=== PATIENT | male | born 1960 | race Caucasian/White ===

== ENCOUNTER → 2018-06-13 11:39 | Outpatient (CLI) | payer OTHER, SELFPAY ==
--- NOTE | 2018-06-13 11:44 | DI.RAD.S_ITS ---
PROCEDURE: XR SACRUM COCCYX MIN 2V INDICATIONS: neuropathy TECHNIQUE: 3 views of the sacrum and coccyx acquired. COMPARISON: None. FINDINGS: Bones: No fractures or dislocations. No suspicious bony lesions. Lower lumbar degenerative disc disease. Trace retrolisthesis of L3 on L4 and grade one anterolisthesis of L4 and L5. Diffuse facet arthropathy. Grossly unremarkable. Alignment of the sacroiliac joints. Degenerative sclerosis and spurring of the pubic symphysis. Mild bilateral hip degeneration. Soft tissues: Visualized bowel gas pattern is normal. No suspicious soft tissue densities. IMPRESSION: Lower lumbar degenerative disease, multilevel spondylolisthesis, and facet arthropathy. Unremarkable appearance of the sacrum. Dictated by: Adrian Parada M.D. on 06/13/2018 at 14:04 Approved by: Adrian Parada M.D. on 06/13/2018 at 14:06
--- NOTE | 2018-06-13 11:44 | DI.RAD.S_ITS ---
PROCEDURE: XR CERVICAL SPINE 2V OR 3V INDICATIONS: neuropathy TECHNIQUE: 3 view(s) of the cervical spine were acquired. COMPARISON: None. FINDINGS: Bones: No fractures or dislocations to the C7 level. The lateral masses of C1 appear intact on the odontoid view. No suspicious bony lesions. Diffuse facet arthropathy. Diffuse endplate spurring and sclerosis. Mild narrowing of the cervical disc spaces throughout. Mild levocurvature Soft tissues: No prevertebral soft tissue swelling. IMPRESSION: Mild levocurvature and diffuse mild cervical disc degeneration and facet arthropathy. Dictated by: Adrian Parada M.D. on 06/13/2018 at 13:16 Approved by: Adrian Parada M.D. on 06/13/2018 at 13:23
--- NOTE | 2018-06-13 11:44 | DI.RAD.S_ITS ---
PROCEDURE: XR LUMBAR SPINE 2-3V INDICATIONS: neuropathy TECHNIQUE: 6 views of the lumbar spine were acquired. COMPARISON: None. FINDINGS: Bones: No fracture or focal osseous destruction although advanced degenerative changes limits diagnostic study sensitivity. Diffuse endplate spurring and sclerosis. Extra scoliosis of the lumbar spine centered at L3. Multilevel facet arthropathy. Grade 1 retrolisthesis of L1 on L2 and L2 on L3, as well as L3 on L4. One anterolisthesis of L4 on L5. Moderate narrowing of the lumbar disc spaces throughout the lumbar spine. There is also lower thoracic degenerative disc disease Soft tissues: Overlying bowel gas pattern is normal. No suspicious soft tissue calcifications. IMPRESSION: Diffuse moderate to severe lumbar disc degeneration, and multilevel facet arthropathy. Additionally, lower thoracic degenerative disc disease is present. Dextroscoliosis centered at L3. Multilevel spondylolistheses as above Dictated by: Adrian Parada M.D. on 06/13/2018 at 12:42 Approved by: Adrian Parada M.D. on 06/13/2018 at 12:46
--- NOTE | 2018-06-13 11:44 | DI.RAD.S_ITS ---
PROCEDURE: XR THORACIC SPINE 3V INDICATIONS: neuropathy TECHNIQUE: 3 views of the thoracic spine were acquired. COMPARISON: None. FINDINGS: Bones: No fractures or dislocations. No suspicious bony lesions. Levocurvature is noted. There is diffuse discogenic change and endplate spurring/sclerosis. There is no definite narrowing of the thoracic spine disc spaces. Cervical disc degeneration is present. Soft tissues: No paravertebral stripe thickening. IMPRESSION: Diffuse thoracic spine discogenic changes and levocurvature. Dictated by: Adrian Parada M.D. on 06/13/2018 at 13:23 Approved by: Adrian Parada M.D. on 06/13/2018 at 13:35
== END ==
PROVIDERS: Visit Provider Physician Assistant
DX: G62.9 Polyneuropathy, unspecified (principal); M51.36 Other intervertebral disc degeneration, lumbar region; M51.34 Other intervertebral disc degeneration, thoracic region; M41.86 Other forms of scoliosis, lumbar region; M47.816 Spondylosis without myelopathy or radiculopathy, lumbar region; M43.16 Spondylolisthesis, lumbar region; M41.82 Other forms of scoliosis, cervical region; M50.30 Other cervical disc degeneration, unspecified cervical region; M47.812 Spondylosis without myelopathy or radiculopathy, cervical region
CPT/HCPCS: 72040; 72072; 72100; 72220

== ENCOUNTER → 2018-06-16 08:17 | Outpatient (CLI) | payer OTHER, SELFPAY ==
[2018-06-16 09:53] LABS: Add Manual Diff / Slide Review NO; Basophils Percent Auto 0.6 % (0-2); Eosinophils Percent Auto 3.5 % (2-4); Hemoglobin 17.1 g/dL (13.5-17.5); Lymphocytes Percent Auto 25.4 % (25-40); Mean Corpuscular HGB Conc 34.2 % (30-36); Mean Corpuscular Hemoglobin 29.1 PG (26-34); Mean Corpuscular Volume 85.2 fL (80-100); Monocytes Percent Auto 10.9 % (3-14); Neutrophils Absolute Auto 3700 /uL (3000-5900); Neutrophils Percent Auto 59.6 % (50-75); Platelet Count 303 X10^3/uL (150-400); Red Blood Cell Count 5.87 X10^6/uL (4.5-5.9); Red Cell Distribution Width 14.7 % (11.6-14.8); White Blood Cell Count 6.2 X10^3/uL (4.5-11.0)
[2018-06-16 09:58] LABS: HEMOLYSIS 16 (0-50)
[2018-06-16 10:15] LABS: Alanine Aminotransferase 86 IU/L (21-72); Albumin 4.7 g/dL (3.5-5.0); Albumin Globulin Ratio 1.8 (1.0-2.8); Alkaline Phosphatase 74 U/L (38-126); Aspartate Aminotransferase 54 IU/L (17-59); BUN Creatinine Ratio 31.4 (6-22); Bilirubin Total 0.7 mg/dL (0.2-1.3); Blood Urea Nitrogen 22 mg/dL (9-20); Calcium 9.8 mg/dL (8.4-10.2); Carbon Dioxide 30 mmol/L (22-32); Chloride 100 mmol/L (98-107); Cholesterol 142 mg/dL (140-199); Estimated Glomerular Filt Rate > 60.0 mL/min (>60); Globulin 2.6 g/dL (1.7-4.1); Glucose 133 mg/dL (70-100); HDL Cholesterol 58 mg/dL (40-60); Hemoglobin A1C% w Est Avg Glu 6.3 % (4.0-6.0); LDL Cholesterol Calculated 65 mg/dL (<100); Potassium 4.7 mmol/L (3.4-5.1); Sodium 141 mmol/L (137-145); Total Protein 7.3 g/dL (6.3-8.2); Triglycerides 96 mg/dL (35-150)
[2018-06-16 10:31] LABS: Thyroid Stimulating Hormone 2.74 uIU/mL (0.47-4.68)
[2018-06-16 11:53] LABS: Vitamin B12 697 pg/mL (239-931)
== END ==
PROVIDERS: Visit Provider Physician Assistant
DX: G62.9 Polyneuropathy, unspecified (principal)
CPT/HCPCS: 36415; 80053; 80061; 82607; 83036; 84443; 85025

== ENCOUNTER → 2018-07-20 15:30 | Outpatient (CLI) | payer OTHER, SELFPAY ==
--- NOTE | 2018-07-20 | DI.MRI.S_ITS ---
PROCEDURE: MR CERVICAL SPINE WO CON INDICATIONS: NECK PAIN. LEFT ARM TINGLING TECHNIQUE: Noncontrast sagittal T1 spin echo and T2 fast spin echo, sagittal STIR, foraminal oblique sagittal T2 fast spin echo, and axial gradient echo or T2 fast spin echo through the cervical spine. COMPARISON: [facility], CR, XR CERVICAL SPINE 2V OR 3V, 06/13/2018, 11:47. FINDINGS: Image quality: Excellent. Alignment and Curvature: There is loss of normal cervical lordosis. Bone Marrow: Marrow demonstrates normal overall signal. Spinal Cord: Visualized spinal cord has normal size and signal. No cerebellar tonsillar herniation. Paraspinous Soft Tissues: No paravertebral masses. Prevertebral soft tissues are normal in thickness. C2-C3: Congenital canal stenosis. Moderate disc desiccation. Mild disc height loss. Mild diffuse disc bulge. Moderate facet and uncovertebral hypertrophy bilaterally. Mild canal stenosis. Severe left and moderate right foraminal stenosis. Left intraforaminal C3 nerve root flattening. C3-C4: Moderate disc desiccation. Mild disc height loss. Mild diffuse disc bulge. Moderate facet and uncovertebral hypertrophy bilaterally. Congenital canal stenosis. Moderate canal stenosis. Severe foraminal stenosis bilaterally with bilateral intraforaminal C4 nerve root flattening. C4-C5: Moderate disc height loss and desiccation. Mild diffuse disc bulge. Congenital canal stenosis. Moderate facet and uncovertebral hypertrophy bilaterally. Severe canal stenosis. Mild cord flattening. Moderate right and severe left foraminal stenosis. Left intraforaminal C5 nerve root flattening. C5-C6: Congenital canal stenosis. Moderate disc height loss and desiccation. Mild diffuse disc bulge/osteophyte. Moderate right greater than left facet and uncovertebral hypertrophy. Moderate to severe canal stenosis. Minimal anterior cord flattening. Moderate foraminal stenosis bilaterally. C6-C7: Moderate disc height loss and desiccation. Moderate diffuse disc bulge. Congenital canal stenosis. Mild facet and uncovertebral hypertrophy bilaterally. Severe canal stenosis. Mild cord flattening. Moderate foraminal stenosis bilaterally. C7-T1: Moderate disc height loss and desiccation. Moderate diffuse disc bulge. Congenital canal stenosis. Overall moderate canal stenosis. Mild anterior cord flattening. No foraminal stenosis. IMPRESSION: 1. Diffuse congenital canal stenosis, with superimposed disc and facet disease, as well as uncovertebral hypertrophy. 2. Multilevel canal stenoses, worst at C4-C5, C5-C6, and C6-C7, where there is cord flattening present. 3. Multilevel foraminal stenoses, worst on the left at C2-C3, bilaterally at C3-C4, and on the left at C4-C5, where there is intraforaminal neural flattening as described above. Recommend correlation with clinical symptoms to ascertain relevance of these findings. Dictated by: Tuan Lockhart M.D. on 07/20/2018 at 16:47 Approved by: Tuan Lockhart M.D. on 07/20/2018 at 16:53
--- NOTE | 2018-07-20 | DI.MRI.S_ITS ---
PROCEDURE: MR LUMBAR SPINE WO CON INDICATIONS: LUMBAR SPINE PAIN, CERVICAL SPINE PAIN TECHNIQUE: Noncontrast sagittal T1 spin echo and T2 fast echo, sagittal STIR, axial T1 and T2 fast spin echo through the lumbar spine. In cases with scoliosis, additional coronal T2 fast spin echo may be performed. COMPARISON: None. FINDINGS: Image quality: Excellent. Alignment and Curvature: There has been minimal dextroconvex curvature of the lumbar spine with apex at L3. There is grade 1 anterolisthesis of L4 on L5 measuring 6 mm. There is trace retrolisthesis of L1 on L2, L2 on L3, L3 on L4. Bone Marrow: Marrow is of normal overall signal. Reactive endplate changes are present at L1-L2, L4-5. No acute vertebral body compression fractures. Spinal Cord: Conus medullaris terminates at the L1 level. Visualized cord demonstrates normal signal and size. Paraspinous Soft Tissues: No paravertebral masses. Right renal hyperintensity is present most suggestive of cyst. Discs: Moderate to severe desiccation is present throughout the lumbar spine. L1-L2: Mild disc bulge including a left lateral disc osteophyte complex. There is minimal canal narrowing. Minimal bilateral foraminal narrowing. L2-L3: Mild disc bulge with moderate to severe spinal stenosis. There is moderate to severe bilateral foraminal narrowing with facet and ligamentum flavum hypertrophy. Epidural lipomatosis is present. L3-L4: Mild disc bulge with moderate to severe spinal stenosis. Moderate bilateral foraminal narrowing with facet and ligamentum flavum hypertrophy. Epidural lipomatosis is present. L4-L5: Mild disc bulge with severe spinal stenosis and canal flattening. There is severe bilateral foraminal narrowing much more prominent on the right with significant nerve root flattening on the right and minimal flattening on the left. Facet and ligamentum flavum hypertrophy are present. L5-S1: Mild disc bulge with minimal canal narrowing. Moderate bilateral foraminal narrowing, right greater than left with facet and ligamentum flavum hypertrophy. IMPRESSION: 1. Grade 1 anterolisthesis of L4 on L5 with severe spinal stenosis and bilateral foraminal narrowing as well as nerve root flattening at this level. 2. Moderate to severe spinal stenosis is present L3-4 secondary to disc bulge, facet arthropathy as well as epidural lipomatosis. 3. Multilevel foraminal narrowing predominantly secondary to facet arthropathy as well as anterolisthesis at L4-5. Dictated by: Lesa Valentino M.D. on 07/23/2018 at 8:54 Approved by: Lesa Valentino M.D. on 07/23/2018 at 10:14
== END ==
PROVIDERS: Visit Provider Orthopaedic Surgery Orthopaedic Surgery of the Spine
DX: M54.2 Cervicalgia (principal); R20.2 Paresthesia of skin; M48.02 Spinal stenosis, cervical region; M48.061 Spinal stenosis, lumbar region without neurogenic claudication; M47.816 Spondylosis without myelopathy or radiculopathy, lumbar region; M51.26 Other intervertebral disc displacement, lumbar region; M43.16 Spondylolisthesis, lumbar region; E88.2 Lipomatosis, not elsewhere classified
CPT/HCPCS: 72141; 72148

== ENCOUNTER → 2018-08-15 12:57 | Outpatient (CLI) | payer OTHER, SELFPAY ==
[2018-08-15 13:52] LABS: Add Manual Diff / Slide Review NO; Basophils Absolute Auto 0 /uL (0-100); Basophils Percent Auto 0.5 % (0-2); Eosinophils Absolute Auto 200 /uL (0-450); Eosinophils Percent Auto 1.8 % (2-4); Hematocrit 49.4 % (41-53); Hemoglobin 16.7 g/dL (13.5-17.5); Lymphocytes Absolute Auto 2200 /uL (1100-4500); Lymphocytes Percent Auto 23.4 % (25-40); Mean Corpuscular HGB Conc 33.7 % (30-36); Mean Corpuscular Hemoglobin 28.7 PG (26-34); Monocytes Absolute Auto 900 /uL (0-900); Monocytes Percent Auto 10.1 % (3-14); Neutrophils Absolute Auto 5900 /uL (1500-7000); Neutrophils Percent Auto 64.2 % (50-75); Platelet Count 284 X10^3/uL (150-400); Red Blood Cell Count 5.81 X10^6/uL (4.5-5.9); Red Cell Distribution Width 14.1 % (11.6-14.8); White Blood Cell Count 9.2 X10^3/uL (4.5-11.0)
[2018-08-15 14:14] LABS: BUN Creatinine Ratio 28.6 (6-22); Blood Urea Nitrogen 20 mg/dL (9-20); Calcium 10.2 mg/dL (8.4-10.2); Carbon Dioxide 28 mmol/L (22-32); Chloride 99 mmol/L (98-107); Estimated Glomerular Filt Rate > 60.0 mL/min (>60); Glucose 183 mg/dL (70-100); HEMOLYSIS 42 (0-50); Potassium 4.5 mmol/L (3.4-5.1); Sodium 139 mmol/L (137-145)
== END ==
PROVIDERS: Visit Provider Orthopaedic Surgery Orthopaedic Surgery of the Spine
DX: Z01.818 Encounter for other preprocedural examination (principal)
CPT/HCPCS: 36415; 80048; 85025; 93005; 93010

== ENCOUNTER 2018-08-23 06:18 | Inpatient (IN) | payer OTHER, SELFPAY ==
[2018-08-16 10:01] VITALS: BMI 30.8
[2018-08-23] VITALS (14 sets, daily range): BP systolic 79–140; BP diastolic 39–87; PULSE 82–102; RESP 14–20; TEMP 36.3–37.1; O2SAT 93–100; BMI 30.2
--- NOTE | 2018-08-23 | DI.RAD.S_ITS ---
PROCEDURE: XR LUMBAR SPINE 2-3V INDICATIONS: L2-3, L3-4, L4-5 TLIF TECHNIQUE: 2 immediate postoperative views of the lumbar spine were acquired. COMPARISON: [facility], , XR LUMBAR SPINE 2-3V, 06/13/2018, 11:47. FINDINGS: Bones: 5 [id number] vertebrae are present. There is normal bony alignment established by the placement of bilateral transverse pedicle screws and vertical fixation rods from L2-L5, with interbody disc prosthesis at L2-3, L3-4, and L4-5. No vertebral body compression fractures. No suspicious bony lesions. Soft tissues: Overlying bowel gas pattern is normal. No suspicious soft tissue calcifications. IMPRESSION: Normal alignment established after posterior fusion procedure with interbody disc prosthesis spanning from L2-L5. Dictated by: Adrian Hughes M.D. on 08/23/2018 at 14:16 Approved by: Adrian Hughes M.D. on 08/23/2018 at 14:27
[2018-08-23] MEDS: LACTATED RINGERS 1,000 ML 42 ML IV ×4 (06:59→14:23)
--- NOTE | 2018-08-23 07:00 | SUR.PREOP ---
Pt reports currently has chronic numbness in butt, right leg, and right foot. Pt reports has chronic tingling in left hand.
[2018-08-23] MEDS: CEFAZOLIN 2 GM/100 ML FROZ.PIGGY IV ×3 (07:52→19:48)
--- NOTE | 2018-08-23 08:03 | PM.PREOP ---
Pre-operative Note Interval Note History & Physical reviewed/Exam performed by Physician: Yes Changes to H&P: No
[2018-08-23] MEDS: BUPIVACAINE 0.25% W/ EPI VIAL 30 ML INJ (08:42)
[2018-08-23] MEDS: BUPIVACAINE LIPOSOME 266 MG/20 ML VIAL INJ (08:43)
--- NOTE | 2018-08-23 08:45 | SUR.OPER ---
Prone on spine table, head in foam head support, padded chest and pelvic supports, gel pad at knees, lower legs supported by pillows; nipples, genitalia and toes free of pressure, arms secured on foam padded arm boards at <90 degrees abduction. Tape over blanket at calves secured to table.
--- NOTE | 2018-08-23 11:11 | SUR.OPER ---
[phone]
[2018-08-23] MEDS: ACETAMINOPHEN IV 1,000 MG/100 ML VIAL 400 MG IV (12:15)
--- NOTE | 2018-08-23 14:08 | PM.OP.1 ---
Operative Date/Time/Diagnoses Date of procedure: 08/23/18 Time of procedure: 08:08 Pre-op diagnosis: 1. L2-3, L3-4, L4-5 spinal stenosis with neurogenic claudication 2. L2-3, L3-4, L4-5 spondylolisthesis 3. L2-3, L3-4, L4-5 spondylosis with radiculopathy Post-op diagnosis: same Procedure & Clinicians Procedure: 1. L2-3, L3-4, L4-5 Postero-lateral and posterior interbody fusion 2. L2-3, L3-4, L4-5 interbody cage placement. 3. L2-3, L3-4, L4-5 decompressive laminectomy with bilateral facetecomies 4. L2-3, L3-4, L4-5 Posterior segmental instrumentation 5. [place] of bone marrow from iliac crest 6. Utilization of microsurgical technique and operating microscope Same procedure as scheduled: Yes Indications: Patient has been having chronic back pain and worsening lumbar radiculopathy. Patient failed multiple conservative management with worsening pain weakness and numbness in her lower extremity. Patient has been having difficulty performing activity of daily living. After discussing risks benefits of treatment options, patient elected proceed with surgery. Surgeon: Ayse Gibbons Casing Fluid Tender: Lesley Cruz Click Yes if Unassisted: No Anesthesia Type: General Operative Notes Closure Type: primary Specimen(s): none sent Implants & Drains: Globus revolve screws, Rise cages Applied: catheter Estimated Blood Loss (mL): 650 Blood products transfused: none Procedure in detail: Patient was seen in the preoperative area. Risks and benefits of the surgery was discussed with the patient. Informed consent was obtained from the patient and placed in the chart. Surgical site was marked. Patient was taken to the operative room. General anesthesia was administered. Prophylactic antibiotic was given to the patient less than 30 min before the incision was made. Patient was placed into a prone position on the Ranulfo table. Patient's back was then prepped and draped in the sterile fashion. Time-out was performed at this time. Using AP and lateral C-arm imaging the interval between L2-3, L3-4, L4-5 was identified and marked on patient's back. A 3 inch incision 2 in from midline was made on the left side first. The fascia was incised in line with skin incision. Globus MARS retractors was placed inside the incision and docked onto the L2, L3, L4 lamina. Using microsurgical technique and operating microscope, a L2, L3, [id number] and L2-3, L3-4, L4-5 facetectomy was performed using a Kerrison rongeur. The disc space at L2-3, L3-4, L4-5 was identified. And a total diskectomy was performed at L2-3, L3-4, L4-5 level. The endplates were decorticated using a rasp and shaver. The total diskectomy and decortication was performed at L2-3, L3-4, L4-5 level in order to to accomplish a L2-3, L3-4, L4-5 fusion. The local bone from the laminectomy and facetectomy was saved for local bone grafting. After the total diskectomy and decortication was completed, Globus viacell bone graft material was combined with local bone that was harvested earlier. At this time, a separate skin is incision was made over the iliac crest. A Jamshidi needle was inserted into the iliac crest through a separate skin incision. 5 cc of bone marrow aspiration was obtained through the separate skin incision using a Jamshidi needle from the iliac crest. The bone marrow aspiration was combined with local bone and the bio4 and DBM bone grafting material. The bone grafting material was placed into the L2-3, L3-4, L4-5 interbody space along with three cages, one expandable cage at each level. The cages were expanded to their maximum height using the torque limiting screwdriver. At this time a mirror image incision was made on the right side. The fascia was incised in line with the skin incision. Globus MARS retractor was inserted and docked onto the L2-3, L3-4, L4-5 posterolateral gutter. Using the power drill, posterior-lateral decortication was performed at L2-3, L3-4, L4-5 level until bleeding cortical bone was identified. The remaining bone grafting material was placed into the L2-3, L3-4, L4-5 posterior lateral gutter he order to accomplish posterolateral fusion at the L2-3, L3-4, L4-5 levels. Using the double C-arm technique, pedicle screws were placed into the L2, L3, L4, L5 pedicles bilaterally. This was done by placing the Jamshidi needle into the pedicles, then placing the guidewires over the Jamshidi needle, and finally placing the cannulated screws over the guidewires bilaterally. After the pedicle screws were placed, 2 titanium rods was locked into the heads of the pedicle screws using locking caps and torque limiting screwdriver. Total 8 pedicles screws were placed. After all the hardware was placed, and confirmed with AP and lateral C-arm imaging, the wound was then irrigated with sterile normal saline and packed with Ray-Barney gauze for 3 min to accomplish hemostasis. After the gauze was removed the deep fascia was closed with #1 Vicryl suture. The subcutaneous layer was closed with 2-0 Vicryl. The skin was closed with skin claude. Patient tolerated the procedure well. There were no complications. Complications: none Condition: stable Disposition: PACU Plan for aftercare: Admit to inpatient hospital
[2018-08-23] MEDS: LORazepam 2 MG/ML SYRINGE 0.5 MG IV (14:50)
[2018-08-23] MEDS: HYDROMORPHONE 2 MG INJ 0.5 MG IV ×3 (14:55→15:20)
[2018-08-23 15:03] LABS: Appearance Urine UA CLEAR; Bilirubin Urine UA NEGATIVE (NEGATIVE); Color Urine UA YELLOW; Glucose Urine UA NEGATIVE (Negative); Ketones Urine UA NEGATIVE (NEGATIVE); Leukocyte Esterase Urine UA NEGATIVE (NEGATIVE); Nitrite Urine UA NEGATIVE (Negative); Occult Blood Urine UA NEGATIVE (Negative); Protein Urine UA TRACE (Negative); Urobilinogen Urine UA 0.2 E.U./dL (0.2); pH Urine UA 6.5 (4.5-8.0)
--- NOTE | 2018-08-23 15:03 | SUR.PHASEI ---
urinary catheter placed in OR - purulent yellow drainage noted on arrival to PACU - sent for UA culture with order from dr FUNEZ
[2018-08-23 15:10] LABS: Amorphous Sediment Urine 1+; Bacteria Urine Occasional (0-1); RBC Urine 1-5/HPF (0-5/HPF); Squamous Epithelial Cell Urine 0-1 /HPF; WBC Urine 5-10/HPF (0-5/HPF)
[2018-08-23 15:11] LABS: Culture Indicated Urine Specimen Cultured
--- NOTE | 2018-08-23 16:16 | PC.NURSE ---
patient up to room by 1550, alert and oriented, answer questions appropriately, at bedside. O2 is 95% on 2Lnc, is currently on continuous pulse ox per protocol. Patient denies any pain to lower back but does state he has chest pain, per OR nurse, has had chest pain since being brought to PACU; OR nurse states this is due to patient positioning during surgery. Patient also has small blister on lip from positioning per OR nurse; this RN did skin assessment and does not notice any blister on patient's lip. Patient denies SOB, nausea, and dizziness. Patient states he has sensation to all extremities but does still have residual tingling/numbness to fingers and toes. Quintana is in place and draining to gravity, urine appears cloudy but yellow, sample already sent to lab for culture. Bowel tones present, lung sounds are clear, and heart rate is regular at 90 BPM. Patient and have been oriented to call light and its use. BA active, SCD's are on. Will continue to monitor.
[2018-08-23] MEDS: SODIUM CHLORIDE 0.9% 1,000 ML 100 ML IV (16:27)
[2018-08-23] MEDS: OXYCODONE IR 5 MG TABLET 10 MG PO (19:48)
[2018-08-23] MEDS: hydrOXYzine pamoate 25 MG CAPSULE PO (19:48)
[2018-08-23] MEDS: ACETAMINOPHEN 325 MG TABLET 650 MG PO (19:49)
[2018-08-23] MEDS: DOCUSATE 100 MG CAPSULE PO (21:02)
[2018-08-23] MEDS: SENNOSIDES 8.6 MG TABLET 17.2 MG PO (21:02)
[2018-08-23] MEDS: HYDROMORPHONE 1 MG INJ 0.5 MG IV (21:29)
[2018-08-24] VITALS (7 sets, daily range): BP systolic 122–162; BP diastolic 78–96; PULSE 101–108; RESP 17–18; TEMP 36.8–37.5; O2SAT 93–97
[2018-08-24] MEDS: HYDROMORPHONE 1 MG INJ 0.5 MG IV ×4 (00:05→19:08)
[2018-08-24] MEDS: hydrOXYzine pamoate 25 MG CAPSULE PO ×5 (00:10→19:12)
[2018-08-24] MEDS: ACETAMINOPHEN 325 MG TABLET 650 MG PO ×3 (02:30→19:12)
[2018-08-24] MEDS: SODIUM CHLORIDE 0.9% 1,000 ML 100 ML IV (02:42)
[2018-08-24] MEDS: OXYCODONE IR 5 MG TABLET 10 MG PO (03:51)
[2018-08-24] MEDS: CEFAZOLIN 2 GM/100 ML FROZ.PIGGY IV (03:52)
[2018-08-24 06:12] LABS: Hematocrit 40.8 % (41-53); Hemoglobin 13.6 g/dL (13.5-17.5)
[2018-08-24] MEDS: DOCUSATE 100 MG CAPSULE PO ×2 (08:30→20:47)
[2018-08-24] MEDS: HYDROMORPHONE 4 MG TABLET PO ×4 (08:38→20:47)
--- NOTE | 2018-08-24 09:28 | P.PN_ITS ---
Subjective Date Patient Seen: 08/24/18 Time Patient Seen: 09:25 Interval history: Hospital day 2, postop day 1 following L2-3 through L4-5 TLIF , cage, posterior screw fixation by Dr. Gibbons. Patient states he does not get much rest during the night. Still has noticeable back pain and some increased leg numbness since surgery. He has not been out of bed yet. No PT yet. Quintana catheter in place. Using oxycodone 10 mg and IV Dilaudid. He feels the Dilaudid is working better. He anticipated 2 night stay in the hospital. Exam Vital Signs (past 8 hours): - 08/24/18 03:48 08/24/18 05:35 08/24/18 08:00 Temperature 99.2 F 98.2 F Pulse Rate 103 H 103 H Respiratory Rate 17 18 Blood Pressure 153/92 H 157/96 H Pulse Oximetry 93 96 94 Oxygen Delivery Method Nasal Cannula Oxygen Flow Rate 0 Narrative Exam Narrative: Patient is alert and responsive is no acute distress lying in bed appearing uncomfortable. Legs. No calf pain or swelling. Pulses symmetrical. Good sensation to touch to the lower legs. Some mild weakness on left foot dorsiflexion with good strength on right. Objective Labs Result Diagrams: 08/24/18 06:04 Labs: Laboratory Results - last 24 hr 08/23/18 08/24/18 14:30 06:04 Hgb 13.6 Hct 40.8 L Urine Color Yellow Urine Appearance Clear Urine pH 6.5 Ur Specific [place] 1.020 Urine Protein Trace H Urine Glucose (UA) Negative Urine Ketones Negative Urine Occult Blood Negative Urine Nitrate Negative Urine Bilirubin Negative Urine Urobilinogen 0.2 Ur Leukocyte Esterase Negative Urine RBC 1-5/hpf Urine WBC 5-10/hpf H Ur Squamous Epith Cells 0-1 /hpf Amorphous Sediment 1+ Urine Bacteria Occasional (0-1) Ur Culture Indicated? Specimen cultured Assessment & Plan Post-op Postoperative Procedures Operation Date: 08/23/18 07:45 Actual Procedures Side Surgeon p L2-3,L3-4,L4-5 TLIF w/Post Instru. Not Applicable Ayse Gibbons MD Plan: Patient will begin working with physical therapy today. Once he is more active will try to DC Quintana catheter. Will use Dilaudid p.o. for pain CV is better pain control. Anticipate discharge home in the next 1-2 days depending on his progress and pain control.
--- NOTE | 2018-08-24 09:35 | PT.IIE ---
Current Diagnoses Foot drop, left foot (08/23/18) Other secondary scoliosis, lumbar region (08/23/18) Spondylolisthesis, lumbar region (08/23/18) Spinal stenosis, lumbar region with neurogenic claudication (08/23/18) Surgery Performed Operation Date: 08/23/18 07:45 Actual Procedures p L2-3,L3-4,L4-5 TLIF w/Post Instru.(Not Applicable) - Ayse Gibbons MD Surgical History (Last Updated 08/16/18 @ 10:14 by Alivia Torres RN) Hx of arthroscopy of right knee (Acute) Hx of knee surgery (Acute) Medical History (Last Updated 08/16/18 @ 10:14 by Alivia Torres RN) Arthritis (Acute) Asthma (Acute) Gout (Acute) Heartburn (Acute) Numbness and tingling (Acute) Pneumonia (Acute) Sciatica (Acute) Tingling (Acute) Physical Therapy Inpatient Evaluation/Re-Eval M1 PT/OT-IP Prior Functional Status Start: 08/24/18 12:25 Freq: NEEDED Status: Active Protocol: Document 08/24/18 09:35 AB (Rec: 08/24/18 12:46 AB [id number]) Medical Review Prior Functional Status Medical History Reviewed Yes Communication able to make needs known Mobility and Gait pt stated that he is independent with all mobilities and ambulation without AD Social History Household Members spouse Living Arrangements House Number of Floors (Floors) Two Floors Number of Stairs To Enter/Railing? pt plans to stay on main level of the house upon d/c but his bedroom he uses usually is on the 2nd floor and has 7 steps with bilateral wide rails and can only hold on to one rail at a time has no steps to enter the house Home Environment Standard Height Toilet Tub/Shower Home Equipment Straight Cane Employment Status Unemployed Additional Social History Comment spouse works a few hours a day per pt stated that he put a rig with ropes in the wall in front of the toilet to assist him to get up M2 PT-IP Current Condition Start: 08/24/18 12:25 Freq: NEEDED Status: Active Protocol: Document 08/24/18 09:35 AB (Rec: 08/24/18 12:46 AB [id number]) Physical Therapy Current Condition Current Condition Evaluation Date 08/24/18 Treatment Diagnosis s/p L2-3, L3-4, L4-5 posterolateral/posterior fusion/lami; diff in walking Onset Date 08/23/18 Precautions Lumbar Precautions Log Roll No Twisting Limit Bending Lifting Restriction of 10 lbs Gait Belt above Incisional Area M3 PT-IP Subjective Start: 08/24/18 12:25 Freq: NEEDED Status: Active Protocol: Document 08/24/18 09:35 AB (Rec: 08/24/18 12:46 AB [id number]) Subjective Physical Therapy Visit Type Type Initial Evaluation Visit Start Time 09:35 Visit Stop Time 10:05 Total Visit Minutes 30 Number of MUSICAL INSTRUMENTS ASSEMBLER Visits 0 Physical Therapy Visit Comments Patient Comments c/o a lot of pain Therapy Pain Assessment Pain When Pain Assessed At Rest Pain Present Pain Present Pain Reported Location Lower Back Intensity 8 Scale Used Numeric (1 - 10) Pain Behaviors Moaning Pain Management Techniques Apply Cold Re-positioning Timing of Activity with Medications M4 PT-IP Mobility and Gait Start: 08/24/18 12:25 Freq: NEEDED Status: Active Protocol: Document 08/24/18 09:35 AB (Rec: 08/24/18 12:46 AB [id number]) PT-Bed Mobility Assessment Rolling Type of Rolling Log Rolling Level of Assist Maximal Assistance Supine to Sit Supine to Sit Maximum Assistance Bedrails Scooting Scooting to Edge of Bed Maximum Assistance PT-Transfer Assessment Sit to and From Stand Sit to and from Stand Maximum Assistance 2 Person Assistance Use of Upper Extremities Equipment Transfer Assistive Device Gait Belt Front Wheeled Walker Orthotic/Prosthetic Devices or Brace: No Transfers Transfer Destination Chair Transfer Technique Stand Step Pivot Transfer Ability Level of Assist Maximum Assistance 2 Person Assistance Use of Upper Extremities Comments Mobility Comments pt able to move RLE but stated that he cannot tell if he is moving it up or down. pt requiredmax A x 2 for stand step pivot transfer using FWW bed to chair with max cues and needs assistance for balance and to stabilize RLE Gait Assessment Comments Gait Comments unable at this time PT-Balance Assessment Sitting Balance and Reactions Static Sitting Balance Ability Good Dynamic Sitting Balance Ability Fair Standing Balance and Reactions Static Standing Balance Ability Poor Dynamic Standing Balance Ability Poor Device Used FWW M5 PT-IP Objective Assessments Start: 08/24/18 12:25 Freq: NEEDED Status: Active Protocol: Document 08/24/18 09:35 AB (Rec: 08/24/18 12:46 AB [id number]) Orientation Orientation/Cognition Level of Alertness Alert Orientation Name Age Birthday Month Date Year Day of Week Place Situation Language Function Ability No Deficits Noted Safety Awareness Decreased Safety Awareness Memory Description Short Term Impaired Gross Range of Motion Lower Extremity ROM Assessment Within Functional Limits Strength Lower Extremity Strength Assessment Bilaterally Impaired Knee 3+/5 Sensation Assessment Sensation Gross Sensation Right LE Impaired Left LE Impaired Light Touch Impaired Proprioception (Position) Impaired Sensation Description Numbness M6 PT-IP Treatment Start: 08/24/18 12:25 Freq: NEEDED Status: Active Protocol: Document 08/24/18 09:35 AB (Rec: 08/24/18 12:46 AB [id number]) Physical Therapy Treatment Exercises Exercises Heel Slides Education Education Provided Precautions Weight Bearing Status Post-Op Packet Safety M7 PT-IP Assessment and Plan Start: 08/24/18 12:25 Freq: NEEDED Status: Active Protocol: Document 08/24/18 09:35 AB (Rec: 08/24/18 12:46 AB [id number]) PT Summary Assessment and Plan Potential Rehabilitation Potential Fair Status of Condition at Evaluation Evolving Summary Impairments Pain ROM Strength Balance Coordination Sensation Tone Cognition Bed Mobility Transfers Gait Activity Tolerance Assessment Summary pt requiring 2 person assist with mobility and unable to ambulate at this time. d/c plan depending on progress but at this time will require SNF rehab. pt c/o increase pain and numbness on RLE affecting mobility. will continue to assess to determined safe d/c. Goals Bed Mobility Goal Standby Assistance Transfer Goal Standby Assistance Front Wheeled Walker Gait Goal Standby Assistance Front Wheel Walker Gait Distance 150 Days to Meet Goals 5 Frequency of Treatment Frequency Of Treatment Twice a Day Treatment Plan Physical Therapy Treatment Plan Bed Mobility Training Transfer Training Gait Training Therapeutic Exercise Balance Retraining Post Op Education Discharge Planning Hot or Cold Pack Neuromuscular Re-ed Coordination Retraining Manual Therapy Other Recommendations and Next Treatment transfers, ambulation Focus Recommendations To Nursing Amount of Assist Needed PT/OT Assist Only Mechanical Lift Discharge Recommendations PT Discharge Recommendations SNF Rehab Equipment Needed for Home Before FWW if pt is going home Discharge
--- NOTE | 2018-08-24 13:39 | CM.DANOTE ---
Patient is a 58 year old male who was admitted on 08/23/18 for TLIF. Pt has [employer] for insurance and his PCP is Dr. Giacomo Pollard. EMR was reviewed. Per Ortho PA, pt having pain management control issues and not medically stable for d/c yet today. PT/OT ordered and pending. 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 Pt denies any hx of HH or SNF and states his preference is to d/c home when stable and states he can deal with the pain and discomfort but my foot is currently numb and might be challenging to ambulate. Pt states that his can assist at d/c and provide transport when ready for discharge. Plan: SW to follow closely after PT/OT eval and recommendations to confirm if he is safe for d/c home with spouse. NILAY Hook Discharge Planning/Care Management CM Discharge Assessment Start: 08/24/18 13:37 Freq: Status: Active Protocol: Document 08/24/18 13:37 BF (Rec: 08/24/18 13:39 BF [id number]) Discharge Planning Assessment Assigned Color Sprayer NILAY Russell Advance Directives? No Advance Directives on File No History Provided By Patient Significant Other Medical Record Has Patient been admitted in last 30 No days? 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 Independent with ADL's Yes Is patient alert and oriented? Yes Caregiver for Another No Comment Waiting for PT/OT eval and recommendations towards likely home Barriers to Discharge No Discharge Plan Home Transportation Arrangement Spouse can likely provide transport at d/c. Additional Comment Waiting for PT/OT eval and recommendations. Whiteboard Updated in Patient Room with Yes name and ext. # of Color Sprayer Review Status In Process Please Provide Date Initial DC 08/24/18 Assessment Was Performed Next Review Type Continued Stay Review Pre-Anesthesia Assessment Start: 08/16/18 10:01 Freq: Status: Complete Protocol: Document 08/16/18 10:01 CAB (Rec: 08/16/18 10:31 CAB [id number]) Pre-Anesthesia Assessment Patient Also Known As (AKA) Don Patient Information Reviewed Via Phone Assessment Assessment Completed With Patient Lab Results BMP/CMP CBC EKG Other Comment Labs/EKG at 08/15/18 Seen Specialist in Last 12 Months Yes Specialist Seen Orthopedist Primary Language [place] Station Cleaning Porter Required No Height 177.8 cm Weight 97.522 kg Body Mass Index (BMI) 30.8 Hearing Ability Normal Visual Assist Glasses Magnifying Glass Dentition Type Teeth, Natural Present Teeth, Broken Hx Anesthesia Reactions No Hx Family Anesthesia Reaction No Hx Malignant Hyperthermia No Hx Blood Transfusions No Anesthesia Review Requested No Guide Excursion No alcohol intake former Alcohol Intake Frequency Other: Quit 20-25 years ago Smoking Status Never smoker Substance Use Type does not use Pain Present Pain Reported Musculoskeletal Symptoms Abnormal Gait Back Pain Difficulty Walking Joint Pain Muscle Cramps Muscle Spasms Muscle Weakness Neck Pain Numbness Tingling History of Falling (Recent or History of Yes ) Patient is completely paralyzed or No completely immobile Mental Status Oriented to own ability Is patient on oxygen? No Does patient have CORTEZ/SOB No Hx Sleep Apnea No Suspected Sleep Apnea No Currently Taking a Beta Kevin No Can You Climb a Flight of Stairs Without Yes SOB Hx Chest Pain No Hx SOB No Hx Syncope or Dizziness No Anti-Coagulant Therapy No Has a Fingerprint Clerk No Cardiac Testing No Hx Pacemaker/ICD No Pacemaker Rep Required? No Cardiac Clearance Received Not Applicable Diet Type At Home Regular dysphagia No Bladder Pattern Frequency Nocturia Urinary Catheter Present No Hx Urinary Self Catheterization No Diabetes No HgbA1C 6.3 Date 08/15/18 Hx Drug Resistant Organism No Have you traveled outside the [facility] in the last 30 days? Marital Status Lives With spouse Prior Living Arrangements House Number of Floors (Floors) Two Floors Number of Stairs To Enter/Railing? 7 stairs, railing present Support System Spouse Does the Patient Have Assistance After Yes Surgery Patient Discharge Plan Description Return Home Comment Pt not advised length of stay per surgeon's office Feels Safe in Current Environment Yes Been Physically Hurt or Threatened By a No Person in Current Environment Do you have thoughts of harming yourself None or others? Are you currently considering suicide? No Do you have a plan to hurt yourself or No Plan others? Do You Have Any Spiritual Beliefs That No May Affect Your HC Choices? Do You Have Any Cultural Practices That No May Affect Your HC Choices? Spiritual Referral None Who Can We Speak to About Patient's Care Family, friends Identifying Code for Release of Patient Declines to issue Information Health Care Proxy/Next of Kin Greer () Health Care Proxy or cell: Emergency Contact Name Greer () Emergency Contact or cell: [phone] Advance Directives? No: Declines further information Power of Tugboat Pilot No PAC Instructions Do not shave/clip surgical site Durable medical equipment Medications to take/avoid Nasal antibiotic NPO Post-op transportation Pre-surgical wash Sturdy shoes/comfortable clothes Do not bring valuables and remove jewelry
--- NOTE | 2018-08-24 14:20 | PT.IPTN ---
Current Diagnoses Foot drop, left foot (08/23/18) Other secondary scoliosis, lumbar region (08/23/18) Spondylolisthesis, lumbar region (08/23/18) Spinal stenosis, lumbar region with neurogenic claudication (08/23/18) Surgery Performed Operation Date: 08/23/18 07:45 Actual Procedures p L2-3,L3-4,L4-5 TLIF w/Post Instru.(Not Applicable) - Ayse Gibbons MD Physical Therapy Treatment Note M2 PT-IP Current Condition Start: 08/24/18 12:25 Freq: NEEDED Status: Active Protocol: Document 08/24/18 09:35 AB (Rec: 08/24/18 12:46 AB [id number]) Physical Therapy Current Condition Current Condition Evaluation Date 08/24/18 Treatment Diagnosis s/p L2-3, L3-4, L4-5 posterolateral/posterior fusion/lami; diff in walking Onset Date 08/23/18 Precautions Lumbar Precautions Log Roll No Twisting Limit Bending Lifting Restriction of 10 lbs Gait Belt above Incisional Area M3 PT-IP Subjective Start: 08/24/18 12:25 Freq: NEEDED Status: Active Protocol: Document 08/24/18 14:20 GGD (Rec: 08/24/18 16:08 GGD [id number]) Subjective Physical Therapy Visit Type Type Treatment Note Visit Start Time 13:55 Visit Stop Time 14:20 Total Visit Minutes 25 Number of CDC ASSOCIATE Visits 1 Physical Therapy Visit Comments Patient Comments Pt states his right foot is numb. Therapy Pain Assessment Pain When Pain Assessed At Rest Pain Present Pain Present Pain Reported Location Lower Back Intensity 8 Scale Used Numeric (1 - 10) M4 PT-IP Mobility and Gait Start: 08/24/18 12:25 Freq: NEEDED Status: Active Protocol: Document 08/24/18 14:20 GGD (Rec: 08/24/18 16:08 GGD [id number]) PT-Bed Mobility Assessment Rolling Type of Rolling Log Rolling Level of Assist Minimal Assistance Supine to Sit Supine to Sit Moderate Assistance Bedrails Scooting Scooting to Edge of Bed Contact Guard Assistance PT-Transfer Assessment Sit to and From Stand Sit to and from Stand Minimal Assistance 1 Person Assistance Use of Upper Extremities Equipment Transfer Assistive Device Gait Belt Front Wheeled Walker Transfers Transfer Destination Chair Transfer Ability Level of Assist Moderate Assistance Gait Assessment Gait Gait Assistance Required: Minimum Assistance 1 Person Assist Distance (Feet) 15 Able to Maintain Weight Bearing Status Yes During Gait Assistive Devices Assistive Device Gait Belt Front Wheeled Walker Orthotic/Prosthetic Devices or Brace: No Gait Deviations General Gait Pattern Decreased Stride Length Decreased Feet Clearance Flexed Trunk Factors Limiting Gait Function Factors Limiting Gait Function Decreased Activity Tolerance Decreased Sensation Decreased Strength Pain Poor Balance Poor Safety Awareness M5 PT-IP Objective Assessments Start: 08/24/18 12:25 Freq: NEEDED Status: Active Protocol: Document 08/24/18 09:35 AB (Rec: 08/24/18 12:46 AB [id number]) Orientation Orientation/Cognition Level of Alertness Alert Orientation Name Age Birthday Month Date Year Day of Week Place Situation Language Function Ability No Deficits Noted Safety Awareness Decreased Safety Awareness Memory Description Short Term Impaired Gross Range of Motion Lower Extremity ROM Assessment Within Functional Limits Strength Lower Extremity Strength Assessment Bilaterally Impaired Knee 3+/5 Sensation Assessment Sensation Gross Sensation Right LE Impaired Left LE Impaired Light Touch Impaired Proprioception (Position) Impaired Sensation Description Numbness M6 PT-IP Treatment Start: 08/24/18 12:25 Freq: NEEDED Status: Active Protocol: Document 08/24/18 14:20 GGD (Rec: 08/24/18 16:08 GGD [id number]) Physical Therapy Treatment Education Education Provided Precautions M7 PT-IP Assessment and Plan Start: 08/24/18 12:25 Freq: NEEDED Status: Active Protocol: Document 08/24/18 14:20 GGD (Rec: 08/24/18 16:08 GGD [id number]) PT Summary Assessment and Plan Summary Assessment Summary Pt needed less assist with mobilty. He did need mod A for bed mobility. Gait tolerance was limited by pain and foot numbness. He had heavy use of UE on FWW. We need to asses for D/C. Frequency of Treatment Frequency Of Treatment Twice a Day Treatment Plan Other Recommendations and Next Treatment transfers, ambulation Focus Recommendations To Nursing Amount of Assist Needed 2 Person Assist Discharge Recommendations PT Discharge Recommendations SNF Rehab Equipment Needed for Home Before FWW if pt is going home Discharge
--- NOTE | 2018-08-24 16:13 | PC.NURSE ---
Pain/ortho: Switched to dilaudid po, reported better pain control. was able to do more with physical therapist. Doing even better this afternoon. Does have some chronic rt leg numbness. Hopefully has achieved enough pain control he will be able to d/c home tomorrow. pt would like to leave tomorrow.
--- NOTE | 2018-08-24 18:43 | OT.IP.EVAL ---
Current Diagnoses Foot drop, left foot (08/23/18) Other secondary scoliosis, lumbar region (08/23/18) Spondylolisthesis, lumbar region (08/23/18) Spinal stenosis, lumbar region with neurogenic claudication (08/23/18) Surgery Performed Operation Date: 08/23/18 07:45 Actual Procedures p L2-3,L3-4,L4-5 TLIF w/Post Instru.(Not Applicable) - Ayse Gibbons MD Past Medical History (Last Updated 08/16/18 @ 10:14 by Alivia Torres RN) Arthritis (Acute) Asthma (Acute) Gout (Acute) Heartburn (Acute) Numbness and tingling (Acute) Pneumonia (Acute) Sciatica (Acute) Tingling (Acute) Surgical History (Last Updated 08/16/18 @ 10:14 by Alivia Torres RN) Hx of arthroscopy of right knee (Acute) Hx of knee surgery (Acute) Occupational Therapy Inpatient Evaluation/Re-Eval M1 PT/OT-IP Prior Functional Status Start: 08/24/18 12:25 Freq: NEEDED Status: Active Protocol: Document 08/24/18 09:35 AB (Rec: 08/24/18 12:46 AB [id number]) Medical Review Prior Functional Status Medical History Reviewed Yes Communication able to make needs known Mobility and Gait pt stated that he is independent with all mobilities and ambulation without AD Social History Household Members spouse Living Arrangements House Number of Floors (Floors) Two Floors Number of Stairs To Enter/Railing? pt plans to stay on main level of the house upon d/c but his bedroom he uses usually is on the 2nd floor and has 7 steps with bilateral wide rails and can only hold on to one rail at a time has no steps to enter the house Home Environment Standard Height Toilet Tub/Shower Home Equipment Straight Cane Employment Status Unemployed Additional Social History Comment spouse works a few hours a day per pt stated that he put a rig with ropes in the wall in front of the toilet to assist him to get up M1 PT/OT-IP Prior Functional Status Start: 08/24/18 18:03 Freq: NEEDED Status: Active Protocol: Document 08/24/18 18:05 [facility] (Rec: 08/24/18 18:43 [facility] [id number]) Medical Review Prior Functional Status Medical History Reviewed Yes Communication able to make needs known Mobility and Gait pt stated that he is independent with all mobilities and ambulation without AD Activities of Daily Living and IADL's Pt states was able to do all Adl and IADl with increased time due to pain. Social History Household Members spouse Living Arrangements House Number of Floors (Floors) Two Floors Number of Stairs To Enter/Railing? pt plans to stay on main level of the house upon d/c but his bedroom he uses usually is on the 2nd floor and has 7 steps with bilateral wide rails and can only hold on to one rail at a time has no steps to enter the house Home Environment Standard Height Toilet Tub/Shower Home Equipment Straight Cane Employment Status Unemployed Additional Social History Comment spouse works a few hours a day per pt stated that he put a rig with ropes in the wall in front of the toilet to assist him to get up M2 OT-IP Current Condition Start: 08/24/18 18:03 Freq: Status: Active Protocol: Document 08/24/18 18:05 [facility] (Rec: 08/24/18 18:43 [facility] [id number]) Occupational Therapy Current Condition Current Condition Evaluation Date 08/24/18 Treatment Diagnosis Spinal Stenosis Diagnosis Onset Date 08/23/18 Post Operative Precautions Lumbar Precautions Log Roll No Twisting Limit Bending Lifting Restriction of 10 lbs Gait Belt above Incisional Area Weight Bearing Status Weight Bearing Status Weight Bear as Tolerated M3 OT- IP Subjective and Pain Start: 08/24/18 18:03 Freq: Status: Active Protocol: Document 08/24/18 18:05 [facility] (Rec: 08/24/18 18:43 [facility] [id number]) OT- Subjective Occupational Therapy Visit Type Type Initial Evaluation Visit Start Time 15:35 Visit Stop Time 16:00 Total Visit Minutes 25 Occupational Therapy Visit Comments Patient Comments Pt wanting to get back to bed. OT Pain Assessment Pain When Pain Assessed At Rest Pain Present Pain Present Pain Reported Location Lower Back Intensity 8 M4 OT- IP ADL's Start: 08/24/18 18:03 Freq: Status: Active Protocol: Document 08/24/18 18:05 [facility] (Rec: 08/24/18 18:43 [facility] [id number]) OT ADL-Dressing General Eval Lower Body Dressing Ability Maximum Assistance Areas Needing Assistance Socks Comments OT Dressing Comments Pt states has not gotten around to getting underground miner and other equipment. OT ADL-Toileting Comments OT Toileting Comments Pt has catheter in place. OT ADL-Bathing Comments OT Bathing Comments Not wanting to shower at this time. Pt has a tub/shower and pending on ability to raise up his legs may need shower chair or tub bench or to just sponge bath initially. M5 OT- IP IADL's Start: 08/24/18 18:03 Freq: Status: Active Protocol: Document 08/24/18 18:05 [facility] (Rec: 08/24/18 18:43 [facility] [id number]) OT-Instrumental Activities of Daily Living Loan Counselor Loan Counselor Comments Pt states to assist at home fro IADl needs. M6 OT- IP Functional Cognition Start: 08/24/18 18:03 Freq: Status: Active Protocol: Document 08/24/18 18:05 [facility] (Rec: 08/24/18 18:43 [facility] [id number]) Cognitive Factors Limiting Selfcare Function Cognitive Ability Level of Alertness Alert Patient Orientation Name Place Situation Attention Span Ability Capable of Focused Attention Capable of Sustained Attention Ability to Follow Commands Able to Follow One Step Commands Memory Description Short Term Impaired Safety Awareness Decreased Ability to Apply Precautions Underestimates Need for Assistance Cognitive Comments Cognitive Assessment Comments Pt needing cues for back precautions, safety awareness for FWW and incorporation for ADL needs. OT- Vision and Hearing OT- Hearing Assessment OT- Hearing Assessment WFL M7 OT- IP Mobility and Balance Start: 08/24/18 18:03 Freq: Status: Active Protocol: Document 08/24/18 18:05 [facility] (Rec: 08/24/18 18:43 [facility] [id number]) OT-Transfer Assessment Sit to and From Stand Sit to and from Stand Moderate Assistance 1 Person Assistance Transfers Transfer Ability Moderate Assistance 1 Person Assistance Technique Transfer Destination Bed Devices Transfer Assistive Devices Gait Belt Front Wheeled Walker Comments Mobility Comments Pt MODA to stand and needing cues to straighten his leg out to stand. Pt heavily relies on his BUE in the FWW . VC to keep FWW closer to to him as tends to have it too far out from him while he is walking. OT- Balance Assessment Sitting Balance and Reactions Static Sitting Balance Ability Normal Dynamic Sitting Balance Ability Good Standing Balance and Reactions Static Standing Balance Ability Fair M8 OT- IP Objective Assessments Start: 08/24/18 18:03 Freq: Status: Active Protocol: Document 08/24/18 18:05 [facility] (Rec: 08/24/18 18:43 [facility] [id number]) OT Gross Range of Motion Upper Extremity Range of Motion Assessment Within Functional Limits OT Strength Comments Strength Comments WFL for BUE M9 OT- IP Assessment and Plan Start: 08/24/18 18:03 Freq: Status: Active Protocol: Document 08/24/18 18:05 [facility] (Rec: 08/24/18 18:43 [facility] [id number]) OT Summary Assessment and Plan Potential Rehabilitation Potential Good Analytic Complexity at Evaluation Low Summary OT Impairments Pain Strength Balance Functional Cognition Functional Mobility Grooming Dressing Toileting Bathing Toilet Transfers Shower Transfers Progress Towards Goals Slow Progress due to Medical Issues Slow Progress due to Activity Tolerance Slow Progress due to Cognition Assessment Summary Pt Low complexity and main barrier is pain and now needing extensive assist for ADL and functional mobility. Pending family training and pt's progress pt looking to go home with to assist. Goals Grooming Goal Standby Assistance Dressing Goal Minimal Assistance Toileting Goal Standby Assistance Bathing Goal Minimal Assistance Toilet Transfer Goal Standby Assistance Shower Transfer Goal Minimal Assistance Patient/Caregiver Education Goal Demonstrate Post-Op Precautions Caregiver Independent Assisting Patient Days to Meet Goals 5 Frequency of Treatment Frequency Of Treatment Once a Day Treatment Plan OT Treatment Plan ADL Training Functional Cognition Training Functional Mobility Patient/Family Education Discharge Planning Other Treatment Recommendations and Next Standing for grooming, Treatment Focus practice AED for LB dressing, family training with . Discharge Recommendations OT Discharge Recommendations Home with Assistance SNF Rehab Other Discharge Recommendations Pending caregiver training home with and progress, may need short skilled rehab. Home Equipment Needs Tub bench/shower chair, LB AED
[2018-08-24] MEDS: SENNOSIDES 8.6 MG TABLET 17.2 MG PO (20:47)
[2018-08-25 00:55] VITALS: BP 157/91; PULSE 100; RESP 19; TEMP 37.2; O2SAT 95
[2018-08-25] MEDS: HYDROMORPHONE 2 MG TABLET 4 MG PO ×2 (01:00→06:01)
[2018-08-25] MEDS: hydrOXYzine pamoate 25 MG CAPSULE PO ×3 (01:00→13:23)
--- NOTE | 2018-08-25 01:29 | PC.NURSE ---
Addendum entered by Lady Mitchell R.N. 08/25/18 06:05: Complaining of 6/10 pain; moaning, grimacing and wincing. Medicated with po Dilaudid + Vistaril. Catheter removed and patient instructed in sx/ prevention of UTI; verbalizes understanding. Original Note: Addendum entered by Lady Mitchell R.N. 08/25/18 02:31: Given 4mg of Dilaudid earlier as patient insistent on full 4mg even though pain was 3/10. Now states pain has increased to 8/10; requested/medicated with IV Dilaudid as he states that worked earlier. Original Note: Patient is alert and oriented. Breath sounds coarse but CTA with RA sat of 95%. HRR. Elevated BP of 157/91 and tachy HR of 100 bpm. Patient at the time having increasing pain; initially rating pain 2/10 but climbing and states it'll get to 8. Medicated with Dilaudid + Vistaril and ice applied after repositioning. Denies nausea. BT present and is passing flatus. Indwelling catheter intact; tubing accidentally disconnected from catheter bag so unable to note color, character or amount at this time. Discussed discontinuing catheter in the morning and patient agreeable. Having numbness in bilateral feet and right leg. Able to get himself in/out of bed with difficulty; some concern for safety as tries to get out of bed backward. Stood at edge of bed with walker and SBA while bed linens changed. Declines to wear SCD's so reminded to ankle wave when awake. Fall risk score is high and bed alarm is activated.
[2018-08-25] MEDS: SODIUM CHLORIDE 0.9% FLUSH 10 ML IV ×3 (02:28→08:33)
[2018-08-25] MEDS: HYDROMORPHONE 1 MG INJ 0.5 MG IV ×2 (02:28→08:23)
[2018-08-25 05:20] VITALS: BP 154/99; PULSE 103; RESP 19; TEMP 37.1; O2SAT 95
[2018-08-25 08:00] VITALS: BP 130/74; PULSE 94; RESP 16; TEMP 37.2; O2SAT 96
[2018-08-25] MEDS: HYDROMORPHONE 2 MG TABLET PO ×2 (09:29→13:23)
[2018-08-25] MEDS: DOCUSATE 100 MG CAPSULE PO (09:30)
--- NOTE | 2018-08-25 09:56 | PM.DS.1 ---
History of Present Illness Date Patient Seen: 08/25/18 Time Patient Seen: 09:57 Chief complaint: lumbar [id number] Narrative: Patient's pain is been severe. Patient taking oral Dilaudid and are oxycodone with as needed IV Dilaudid. Pain this morning is 3/10. After moving around getting to the bedside chair his pain is 7/10. Denies fever chills. No nausea vomiting. Discharge Providers Date of admission: 08/23/18 06:18 Primary care physician: Giacomo Pollard MD Consults: 08/23/18 16:01 Consult to Occupational Therapy Evaluate & Treat Comment: Physician Instructions: Evaluate and treat Consult to Physical Therapy Evaluate & Treat Comment: Physician Instructions: Evaluate and Treat 08/23/18 19:20 Consult to Respiratory Therapy Evaluate & Treat Comment: Physician Instructions: Evaluate and treat Discharge provider: Cuco Bloom PA-C Discharge Date: 08/25/18 Summary Discharge Diagnosis: Status post Procedure: 1. L2-3, L3-4, L4-5 Postero-lateral and posterior interbody fusion 2. L2-3, L3-4, L4-5 interbody cage placement. 3. L2-3, L3-4, L4-5 decompressive laminectomy with bilateral facetecomies 4. L2-3, L3-4, L4-5 Posterior segmental instrumentation 5. [place] of bone marrow from iliac crest 6. Utilization of microsurgical technique and operating microscope Hospital Course: Patient has been having chronic back pain and worsening lumbar radiculopathy. Patient failed multiple conservative management with worsening pain weakness and numbness in her lower extremity. Patient has been having difficulty performing activity of daily living. After discussing risks benefits of treatment options, patient elected proceed with surgery. Surgeon: Ayse Gibbons Naturopath: Lesley Jeronimo'Brien Click Yes if Unassisted: No Anesthesia Type: General Operative Notes Closure Type: primary Specimen(s): none sent Implants & Drains: Globus revolve screws, Rise cages Applied: catheter Estimated Blood Loss (mL): 650 Blood products transfused: none Patient consented to the above-mentioned procedures. Patient taken to operating room underwent fusion lumbar spine. Patient back in his room recovering well as in stable condition. Pain control has been difficult but improving. Patient is ambulating with physical therapy. Status at Discharge Functional status at discharge: uses cane/walker Overall status at discharge: patient is progressing back to baseline Time Spent with Patient Less than 30 minutes Exam Vital Signs (past 8 hours): - 08/25/18 05:20 08/25/18 08:00 Temperature 98.7 F 98.9 F Pulse Rate 103 H 94 H Respiratory Rate 19 16 Blood Pressure 154/99 H 130/74 Pulse Oximetry 95 96 Oxygen Delivery Method Room Air Oxygen Flow Rate 0 Narrative Exam Narrative: Pleasant 58-year-old male sitting comfortably in the bedside chair in no apparent distress. Lumbar dressing is clean, dry and intact. 5/5 strength with dorsiflexion, plantar flexion, great toe extension bilaterally. Sensation slightly blunted over the dorsum of the right foot. Both legs are warm and dry. Objective Labs Result Diagrams: 08/24/18 06:04 Discharge Plan Discharge Plan Patient Disposition: Home Discharge comment: DC home today after PT Discharge Med Rec/Prescriptions Prescriptions: New acetaminophen 325 mg Tablet 650 mg PO Q6HR PRN (Reason: Pain, Mild (1-3)) Qty: 60 RF: 0 hydromorphone 2 mg Tablet 4 mg PO Q4HR PRN (Reason: Pain, Severe (7-10)) Qty: 60 RF: 0 hydroxyzine pamoate 25 mg Capsule 25 mg PO Q4HR PRN (Reason: Nausea And Vomiting) Qty: 30 RF: 1 oxycodone 5 mg tablet 5 mg PO Q4-6H PRN (Reason: pain) Qty: 30 RF: 0 Continue creatine monohydrate 5,000 mg powder in packet 1 scoop/day PO DAILY RF: 0 whey protein isolate 21 gram-90 kcal/24 gram powder 1 scoop/day PO DAILY RF: 0 Follow up/Referrals: Giacomo Pollard MD [Primary Care Provider] - Ayse Gibbons MD [Physician] - (follow up 2 wks) Provider Discharge Instructions Diet: Diet as Tolerated Activity: Limit bending, lifting, twisting Cold/Heat Therapy: Apply ice to the affected area as needed Skin/Wound/Dressing Care Report to your healthcare provider any signs of infection, such as:: chills, fever, increased pain, unusual drainage and unusual redness Dressing: Keep dressing clean and dry Discharge Data Primary Care Provider: Giacomo Pollard Attending Provider: Ayse Gibbons Admit Date/Time: 08/23/18 06:18
--- NOTE | 2018-08-25 10:55 | PT.IPTN ---
Current Diagnoses Foot drop, left foot (08/23/18) Other secondary scoliosis, lumbar region (08/23/18) Spondylolisthesis, lumbar region (08/23/18) Spinal stenosis, lumbar region with neurogenic claudication (08/23/18) Surgery Performed Operation Date: 08/23/18 07:45 Actual Procedures p L2-3,L3-4,L4-5 TLIF w/Post Instru.(Not Applicable) - Ayse Gibbons MD Physical Therapy Treatment Note M2 PT-IP Current Condition Start: 08/24/18 12:25 Freq: NEEDED Status: Active Protocol: Document 08/24/18 09:35 AB (Rec: 08/24/18 12:46 AB [id number]) Physical Therapy Current Condition Current Condition Evaluation Date 08/24/18 Treatment Diagnosis s/p L2-3, L3-4, L4-5 posterolateral/posterior fusion/lami; diff in walking Onset Date 08/23/18 Precautions Lumbar Precautions Log Roll No Twisting Limit Bending Lifting Restriction of 10 lbs Gait Belt above Incisional Area M3 PT-IP Subjective Start: 08/24/18 12:25 Freq: NEEDED Status: Active Protocol: Document 08/25/18 09:55 GGD (Rec: 08/25/18 12:25 GGD [id number]) Subjective Physical Therapy Visit Type Type Treatment Note Visit Start Time 10:25 Visit Stop Time 10:55 Total Visit Minutes 30 Number of TOBACCO PACKER Visits 2 Physical Therapy Visit Comments Patient Comments Pt states he was up in chair. Therapy Pain Assessment Pain When Pain Assessed At Rest Pain Present Pain Present Pain Reported Location Lower Back Intensity 2 Scale Used Numeric (1 - 10) M4 PT-IP Mobility and Gait Start: 08/24/18 12:25 Freq: NEEDED Status: Active Protocol: Document 08/25/18 09:55 GGD (Rec: 08/25/18 12:25 GGD [id number]) PT-Bed Mobility Assessment Rolling Type of Rolling Log Rolling Level of Assist Contact Guard Assistance Supine to Sit Supine to Sit Contact Guard Assistance Bedrails Sit to Supine Sit to Supine Contact Guard Assistance Bedrails Scooting Scooting to Edge of Bed Contact Guard Assistance PT-Transfer Assessment Sit to and From Stand Sit to and from Stand Contact Guard Assistance Use of Upper Extremities Equipment Transfer Assistive Device Gait Belt Front Wheeled Walker Transfers Transfer Destination Bed Transfer Ability Level of Assist Minimal Assistance Gait Assessment Gait Gait Assistance Required: Contact Guard Assist Distance (Feet) 120 Able to Maintain Weight Bearing Status Yes During Gait Assistive Devices Assistive Device Gait Belt Front Wheeled Walker Orthotic/Prosthetic Devices or Brace: No Gait Deviations General Gait Pattern Decreased Stride Length Decreased Feet Clearance Flexed Trunk Factors Limiting Gait Function Factors Limiting Gait Function Decreased Activity Tolerance Decreased Sensation Decreased Strength Pain Poor Balance Poor Safety Awareness Stair Climbing Assessment Evaluation Level of Assist On Stairs Contact Guard Assistance Minimal Assistance Devices Stair Climbing Assistive Devices Right Railing Technique/Endurance Stair Climbing Direction Ascend and Descend Stair Climbing Technique Step to Step Number of Steps Climbed 3 Query Text: Stair Climbing Set # Repetitions (reps) 1 Comments Stair Climbing Comments Pt needed min cues. He plans to stay in daylight basement and does't need to go up stairs. M5 PT-IP Objective Assessments Start: 08/24/18 12:25 Freq: NEEDED Status: Active Protocol: Document 08/24/18 09:35 AB (Rec: 08/24/18 12:46 AB [id number]) Orientation Orientation/Cognition Level of Alertness Alert Orientation Name Age Birthday Month Date Year Day of Week Place Situation Language Function Ability No Deficits Noted Safety Awareness Decreased Safety Awareness Memory Description Short Term Impaired Gross Range of Motion Lower Extremity ROM Assessment Within Functional Limits Strength Lower Extremity Strength Assessment Bilaterally Impaired Knee 3+/5 Sensation Assessment Sensation Gross Sensation Right LE Impaired Left LE Impaired Light Touch Impaired Proprioception (Position) Impaired Sensation Description Numbness M6 PT-IP Treatment Start: 08/24/18 12:25 Freq: NEEDED Status: Active Protocol: Document 08/25/18 09:55 GGD (Rec: 08/25/18 12:25 GGD [id number]) Physical Therapy Treatment Education Education Provided Precautions M7 PT-IP Assessment and Plan Start: 08/24/18 12:25 Freq: NEEDED Status: Active Protocol: Document 08/25/18 09:55 GGD (Rec: 08/25/18 12:25 GGD [id number]) PT Summary Assessment and Plan Summary Assessment Summary Pt improved with mobility. He needed less assist. He was able to progress gait and stair mobility. He was mildly unstable with gait. He is safe for home D/C when medically stable. Frequency of Treatment Frequency Of Treatment Twice a Day Treatment Plan Physical Therapy Treatment Plan Bed Mobility Training Transfer Training Gait Training Therapeutic Exercise Balance Retraining Post Op Education Discharge Planning Hot or Cold Pack Neuromuscular Re-ed Coordination Retraining Manual Therapy Other Recommendations and Next Treatment transfers, ambulation Focus Recommendations To Nursing Amount of Assist Needed 1 Person Assist Discharge Recommendations PT Discharge Recommendations Home with Assistance
--- NOTE | 2018-08-25 13:06 | CM.DPC ---
DCP Cont: Per Ortho PA, pt medically stable to d/c home today pending further PT evaluation and training. Per PT, pt still somewhat painful but made progress and recommending safe d/c home later today. Per RN, no concerns at this time. Plan: Patient to d/c home today via spouse POV and no SW needs at this time. NILAY Hook
--- NOTE | 2018-08-25 13:50 | PC.NURSE ---
Am shift Pt is a/o x3, start of shift, rating pain 7/10, facial grimace, diaphoretic. Medicated for pain and updated with POC. Pt feels he should d/c today. Education provided for IV narcotic use and d/c planning. into see Pt and will return if in fact Pt is able to d/c home. Numbness reported to BLE R>L. Ambulation observed, Up to stairs with PT. D/c orders obtained. Continue with PO pain control and plan for afternoon d/c.
--- NOTE | 2018-08-25 15:35 | PC.NURSE ---
9901 ADD Pt back to nurses station to let staff that pharmacy will not fill Rx for Dilaudid with Oxycodone without speaking to a provider. Call into [facility] and given contact number for [facility] pharmacy.
== END 2018-08-25 15:04 | disposition home or self-care (01) | DRG 455 ==
PROVIDERS: Admitting Provider Orthopaedic Surgery Orthopaedic Surgery of the Spine; PCP Student in an Organized Health Care Education/Training Program; Visit Provider Orthopaedic Surgery Orthopaedic Surgery of the Spine
PROC: 0SG10AJ Fusion of 2 or more Lumbar Vertebral Joints with Interbody Fusion Device, Posterior Approach, Anterior Column, Open Approach (ICD-10-PCS; principal; 2018-08-23 07:45)
DX: M48.062 Spinal stenosis, lumbar region with neurogenic claudication (principal); M41.56 Other secondary scoliosis, lumbar region; M43.16 Spondylolisthesis, lumbar region; M47.26 Other spondylosis with radiculopathy, lumbar region
CPT/HCPCS: 36415; 72100; 76000; 81001; 85014; 85018; 87086; 97116; 97162; 97165; 97530; C1776; C9290; J0131; J0330; J0690; J1170; J2060; J2250; J2405; J2704; J3010

== ENCOUNTER 2018-11-12 14:30 | Outpatient (RCR) | payer OTHER, SELFPAY ==
[2018-08-23 07:47] VITALS: BMI 30.2
--- NOTE | 2018-10-11 12:45 | PT.OIE ---
Current Diagnoses Stiffness of unspecified joint, not elsewhere classified (10/11/18) Other secondary scoliosis, lumbar region (10/11/18) Spondylolisthesis, lumbar region (10/11/18) Spinal stenosis, lumbar region with neurogenic claudication (10/11/18) Sciatica, right side (10/11/18) Muscle weakness (generalized) (10/11/18) Unspecified abnormalities of gait and mobility (10/11/18) Past Medical History (Last Updated 08/16/18 @ 10:14 by Alivia Torres RN) Arthritis (Acute) Asthma (Acute) Gout (Acute) Heartburn (Acute) Numbness and tingling (Acute) Pneumonia (Acute) Sciatica (Acute) Tingling (Acute) Past Surgical History (Last Updated 08/16/18 @ 10:14 by Alivia Torres RN) Hx of arthroscopy of right knee (Acute) Hx of knee surgery (Acute) Provider Visit Care Team Role Provider Type Giacomo Pollard MD Family Provider Physician Primary Care Provider Specialty: Internal Medicine Address: [address] [place] [address], [id number] Email: Ayse Gibbons MD Attending Provider Physician Specialty: Orthopedic Surgery Address: [address] [place] [address], [id number] Email: [email or web address] Physical Therapy Initial Evaluation PT-OP-A Visit Information Start: 10/12/18 10:42 Freq: Status: Active Protocol: Document 10/11/18 12:15 DCW (Rec: 10/12/18 12:57 DCW [id number]) Out-Patient Physical Therapy Visit Information Visit Information Visit Type Initial Evaluation Visit Start Time 12:15 Visit Stop Time 12:45 Total Visit Minutes 30 Visit Number 1 Number of CHIEF SOLUTION ARCHITECT Visits 0 Evaluation Information Evaluation Date 10/13/18 PT-OP-B Current Condition Start: 10/12/18 10:42 Freq: Status: Active Protocol: Document 10/11/18 12:15 DCW (Rec: 10/12/18 12:57 DCW [id number]) Current Condition History of Current Condition Onset Date 08/23/18 Current Complaints Back pain, R leg weakness, difficulty walking s/p L2-5 TLIF History of Current Condition Pt is a 58 year old male presenting nearly 2 months s/p L2-5 TLIF, cage, and bilateral posterior instrumentation secondary to spondylolisthesis, scoliosis, and lumbar spinal stenosis /c neurogenic claudication. Pt reports that prior to surgery, he had about 25% numbness in his right foot, up his right leg, and across his posterior hips. Following surgery, however, he has 90% numbness throughout his entire right leg and over to his left posterior hip. Pt notes he was able to walk in for his surgery, but has not been able to walk much since. Pt does note that since he took a prednisone pack three weeks ago, about 50% of the numbness has changed to pain, so I guess that's good, since I'm at least feeling something again. Pt reports that his neck will also need surgery, and is causing numbness and weakness into his hands, but his surgeon decided to get my back squared away first before worrying about the neck . 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 Pt reports that Dr Gibbons told him he could begin to perform very mild flexion/rotation as tolerated, but remember baby steps. Pt reports that at home, he ascends/descends his stairs 6x/day, using his SPC in his L hand and his R hand on a rail, but he has to go down backwards. Prior Treatments and Tests 2-5 TLIF, cage, and bilateral posterior instrumentation secondary to spondylolisthesis , scoliosis, and lumbar spinal stenosis /c neurogenic claudication Future Testing and Treatments Planned Likely cervical lami/fusion in the upcoming months Treatment Goals Patient/Caregiver Goals Pt would like to decrease the numbness in his leg, improve his current strength level, and to be able to stand up fo longer than a few minutes. 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 PT-OP-F Manual Assessment Start: 10/12/18 10:42 Freq: Status: Active Protocol: Document 10/11/18 12:15 DCW (Rec: 10/12/18 12:57 DCW [id number]) Manual Assessments Soft Tissue Assessment Soft Tissue Mobility Assessment Surgical incisions CDI, minimal edema in surgical area . Joint Mobility Assessment Joint Mobility Assessment Lumbar mobility significantly limited secondary to instrumentation, tone, and pain. PT-OP-G Mobility & Gait Start: 10/12/18 10:42 Freq: Status: Active Protocol: Document 10/11/18 12:15 DCW (Rec: 10/12/18 12:57 DCW [id number]) OP Gait Assessment Gait Gait Assistance Required: Standby Assistance Distance (Feet) 170 Able to Maintain Weight Bearing Status Yes During Gait Assistive Devices Assistive Device Front Wheeled Walker Orthotic/Prosthetic Devices or Brace: No Gait Deviations General Gait Pattern Antalgic Decreased Stride Length Flexed Trunk Lateral Trunk Lean Comments Gait Comments Steppage gait, trendelenberg lateral trunk flexion, R foot drop/slap. PT-OP-K Range of Motion Start: 10/12/18 10:42 Freq: Status: Active Protocol: Document 10/11/18 12:15 DCW (Rec: 10/12/18 12:57 DCW [id number]) Lumbar Spine Range of Motion Lumbar Spine Active Degrees Testing Position Sitting Flexion 12 Rotation Left 14 Rotation Right 16 ROM Limitations Soft Tissue Tightness Bony Restriction Muscle Tone Pain PT-OP-M Strength Start: 10/12/18 10:42 Freq: Status: Active Protocol: Document 10/11/18 12:15 DCW (Rec: 10/12/18 12:57 DCW [id number]) Hip Strength Hip Manual Muscle Testing Right Flexion (L2) 3 Fair Abduction 3+ Fair+ Adduction 3+ Fair+ External Rotation 3+ Fair+ Internal Rotation 3+ Fair+ Left Flexion (L2) 4+ Good+ Abduction 4+ Good+ Adduction 4 Good External Rotation 4 Good Internal Rotation 4 Good Knee Strength Knee Manual Muscle Testing Right Flexion (S2) 3+ Fair+ Extension (L3) 3 Fair Left Flexion (S2) 4 Good Extension (L3) 4+ Good+ Ankle/Foot Strength Ankle and Foot Manual Muscle Testing Right Dorsiflexion (L4) 2- Poor- Plantarflexion (S1) 3 Fair Left Dorsiflexion (L4) 4 Good Plantarflexion (S1) 4 Good PT-OP-T Assessment and Plan Start: 10/12/18 10:42 Freq: Status: Active Protocol: Document 10/11/18 12:15 DCW (Rec: 10/12/18 12:57 DCW [id number]) Physical Therapy Assessment Rehab Potential Rehabilitation Potential Good Evaluation Complexity Number of Personal Factors/Comorbidities 3 or More Number of Body Systems Impaired 4 or More Clinical Presentation at Evaluation Unstable Impairments Impairments Activity Tolerance Functional Activities Functional Mobility Gait Pain ROM Strength Tone Goals Four Impairment Stairs Short Term Goal (STG) Pt to ascend/descend stairs with one railing using step- over-step gait pattern. STG Duration 11/11/18 Three Impairment R leg weakness Shelter Goal (LTG) R leg MMT to 4-/5, with exception of R DF to 3/5 LTG Duration 12/11/18 Two Impairment Decreased activity tolerance Short Term Goal (STG) Pt to increased standing tolerance from two minutes to 10 minutes to improve ability to perform ADLs. STG Duration 11/11/18 Side Splitter Goal (LTG) Pt to lift 15 pounds without losing balance or increasing pain LTG Duration 12/11/18 One Impairment Pt does not have an appropriate home exercie program Short Term Goal (STG) Pt to be independent and complaint with an appropriate HEP STG Duration 11/11/18 Assessment Summary Assessment Pt presents with severe right leg radicular weakness, numbness, and pain s/p 2-5 TLIF, cage, and bilateral posterior instrumentation. Pt is unable to perform any of his normal activities, and struggles to ambulate any community distances without the assistance of an AD. Pt's gait is limited by fatigue, R foot drop, R hip weakness, and pain. Pt should benefit from skilled therapy focusing on improving activity tolerance, increasing LE strength, balance training, gait training, core strengthening, pain-control modalities, and gentle increase in lumbar ROM as tolerates following surgical precautions. Physical Therapy Plan Frequency and Duration Frequency of Treatment 2x/Week Duration of Treatment 10 weeks Plan of Care Start Date 10/11/18 Plan of Care End Date 12/20/18 Therapeutic Interventions Therapeutic Interventions Aquatic Therapy Coordination Training Gait Training Home Exercise Program Manual Therapy Neuromuscular Re-education Patient/Caregiver Education Self-Care/Home Management Soft Tissue Mobilization Therapeutic Activities Therapeutic Exercises Modalities Cold Pack/Ice Massage Electric Stimulation Hot Packs Ultrasound Next Visit Focus/Plan Next Note Type Treatment Note Next Visit Plan LE strengthening, gait training, balance training, pain control.
--- NOTE | 2018-10-11 12:45 | PT.OPPOC ---
Current Diagnoses Stiffness of unspecified joint, not elsewhere classified (10/11/18) Other secondary scoliosis, lumbar region (10/11/18) Spondylolisthesis, lumbar region (10/11/18) Spinal stenosis, lumbar region with neurogenic claudication (10/11/18) Sciatica, right side (10/11/18) Muscle weakness (generalized) (10/11/18) Unspecified abnormalities of gait and mobility (10/11/18) Provider Visit Care Team Role Provider Type Giacomo Pollard MD Family Provider Physician Primary Care Provider Specialty: Internal Medicine Address: [address] [place] [address], [id number] Email: Ayse Gibbons MD Attending Provider Physician Specialty: Orthopedic Surgery Address: [address] [place] [address], [id number] Email: [email or web address] Plan Of Care PT-OP-T Assessment and Plan Start: 10/12/18 10:42 Freq: Status: Active Protocol: Document 10/11/18 12:15 DCW (Rec: 10/12/18 12:57 DCW [id number]) Physical Therapy Assessment Rehab Potential Rehabilitation Potential Good Evaluation Complexity Number of Personal Factors/Comorbidities 3 or More Number of Body Systems Impaired 4 or More Clinical Presentation at Evaluation Unstable Impairments Impairments Activity Tolerance Functional Activities Functional Mobility Gait Pain ROM Strength Tone Goals Four Impairment Stairs Short Term Goal (STG) Pt to ascend/descend stairs with one railing using step- over-step gait pattern. STG Duration 11/11/18 Three Impairment R leg weakness Senior Living Goal (LTG) R leg MMT to 4-/5, with exception of R DF to 3/5 LTG Duration 12/11/18 Two Impairment Decreased activity tolerance Short Term Goal (STG) Pt to increased standing tolerance from two minutes to 10 minutes to improve ability to perform ADLs. STG Duration 11/11/18 Senior Living Goal (LTG) Pt to lift 15 pounds without losing balance or increasing pain LTG Duration 12/11/18 One Impairment Pt does not have an appropriate home exercie program Short Term Goal (STG) Pt to be independent and complaint with an appropriate HEP STG Duration 11/11/18 Assessment Summary Assessment Pt presents with severe right leg radicular weakness, numbness, and pain s/p 2-5 TLIF, cage, and bilateral posterior instrumentation. Pt is unable to perform any of his normal activities, and struggles to ambulate any community distances without the assistance of an AD. Pt's gait is limited by fatigue, R foot drop, R hip weakness, and pain. Pt should benefit from skilled therapy focusing on improving activity tolerance, increasing LE strength, balance training, gait training, core strengthening, pain-control modalities, and gentle increase in lumbar ROM as tolerates following surgical precautions. Physical Therapy Plan Frequency and Duration Frequency of Treatment 2x/Week Duration of Treatment 10 weeks Plan of Care Start Date 10/11/18 Plan of Care End Date 12/20/18 Therapeutic Interventions Therapeutic Interventions Aquatic Therapy Coordination Training Gait Training Home Exercise Program Manual Therapy Neuromuscular Re-education Patient/Caregiver Education Self-Care/Home Management Soft Tissue Mobilization Therapeutic Activities Therapeutic Exercises Modalities Cold Pack/Ice Massage Electric Stimulation Hot Packs Ultrasound Next Visit Focus/Plan Next Note Type Treatment Note Next Visit Plan LE strengthening, gait training, balance training, pain control. Plan of Care Dates Plan of Care Start Date 10/11/18 Plan of Care End Date 12/20/18 Please Sign and Return: I have reviewed this Plan of Care and certify that the skilled therapy services above are required to meet the patient?s needs. Physician Signature Date Printed Name and Credentials Clinical Instructor Signature Printed Name and Credentials
--- NOTE | 2018-10-15 17:36 | PT.OTN ---
Current Diagnoses Other secondary scoliosis, lumbar region (10/15/18) Spondylolisthesis, lumbar region (10/15/18) Spinal stenosis, lumbar region with neurogenic claudication (10/15/18) Physical Therapy Treatment Note PT-OP-A Visit Information Start: 10/12/18 10:42 Freq: Status: Active Protocol: Document 10/15/18 16:45 DCW (Rec: 10/15/18 17:36 DCW [id number]) Out-Patient Physical Therapy Visit Information Visit Information Visit Type Treatment Note Visit Start Time 16:45 Visit Stop Time 17:30 Total Visit Minutes 45 Visit Number 2 Number of DIRECTOR CLINICAL PHARMACOLOGY Visits 0 Evaluation Information Evaluation Date 10/13/18 PT-OP-B Current Condition Start: 10/12/18 10:42 Freq: Status: Active Protocol: Document 10/11/18 12:15 DCW (Rec: 10/12/18 12:57 DCW [id number]) Current Condition History of Current Condition Onset Date 08/23/18 Current Complaints Back pain, R leg weakness, difficulty walking s/p L2-5 TLIF History of Current Condition Pt is a 58 year old male presenting nearly 2 months s/p L2-5 TLIF, cage, and bilateral posterior instrumentation secondary to spondylolisthesis, scoliosis, and lumbar spinal stenosis /c neurogenic claudication. Pt reports that prior to surgery, he had about 25% numbness in his right foot, up his right leg, and across his posterior hips. Following surgery, however, he has 90% numbness throughout his entire right leg and over to his left posterior hip. Pt notes he was able to walk in for his surgery, but has not been able to walk much since. Pt does note that since he took a prednisone pack three weeks ago, about 50% of the numbness has changed to pain, so I guess that's good, since I'm at least feeling something again. Pt reports that his neck will also need surgery, and is causing numbness and weakness into his hands, but his surgeon decided to get my back squared away first before worrying about the neck . 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 Pt reports that Dr Gibbons told him he could begin to perform very mild flexion/rotation as tolerated, but remember baby steps. Pt reports that at home, he ascends/descends his stairs 6x/day, using his SPC in his L hand and his R hand on a rail, but he has to go down backwards. Prior Treatments and Tests 2-5 TLIF, cage, and bilateral posterior instrumentation secondary to spondylolisthesis , scoliosis, and lumbar spinal stenosis /c neurogenic claudication Future Testing and Treatments Planned Likely cervical lami/fusion in the upcoming months Treatment Goals Patient/Caregiver Goals Pt would like to decrease the numbness in his leg, improve his current strength level, and to be able to stand up fo longer than a few minutes. 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 PT-OP-C Subjective Start: 10/12/18 10:42 Freq: Status: Active Protocol: Document 10/15/18 16:45 DCW (Rec: 10/15/18 17:36 DCW [id number]) OP-PT Subjective Patient Comments Patient Comments Pt notes his feet and knees are often very tight when waking up in the AM, and he has to work for a few minutes to get everything loose enough for his heels to actually touch down. PT-OP-F Manual Assessment Start: 10/12/18 10:42 Freq: Status: Active Protocol: Document 10/11/18 12:15 DCW (Rec: 10/12/18 12:57 DCW [id number]) Manual Assessments Soft Tissue Assessment Soft Tissue Mobility Assessment Surgical incisions CDI, minimal edema in surgical area . Joint Mobility Assessment Joint Mobility Assessment Lumbar mobility significantly limited secondary to instrumentation, tone, and pain. PT-OP-G Mobility & Gait Start: 10/12/18 10:42 Freq: Status: Active Protocol: Document 10/11/18 12:15 DCW (Rec: 10/12/18 12:57 DCW [id number]) OP Gait Assessment Gait Gait Assistance Required: Standby Assistance Distance (Feet) 170 Able to Maintain Weight Bearing Status Yes During Gait Assistive Devices Assistive Device Front Wheeled Walker Orthotic/Prosthetic Devices or Brace: No Gait Deviations General Gait Pattern Antalgic Decreased Stride Length Flexed Trunk Lateral Trunk Lean Comments Gait Comments Steppage gait, trendelenberg lateral trunk flexion, R foot drop/slap. PT-OP-K Range of Motion Start: 10/12/18 10:42 Freq: Status: Active Protocol: Document 10/11/18 12:15 DCW (Rec: 10/12/18 12:57 DCW [id number]) Lumbar Spine Range of Motion Lumbar Spine Active Degrees Testing Position Sitting Flexion 12 Rotation Left 14 Rotation Right 16 ROM Limitations Soft Tissue Tightness Bony Restriction Muscle Tone Pain PT-OP-M Strength Start: 10/12/18 10:42 Freq: Status: Active Protocol: Document 10/11/18 12:15 DCW (Rec: 10/12/18 12:57 DCW [id number]) Hip Strength Hip Manual Muscle Testing Right Flexion (L2) 3 Fair Abduction 3+ Fair+ Adduction 3+ Fair+ External Rotation 3+ Fair+ Internal Rotation 3+ Fair+ Left Flexion (L2) 4+ Good+ Abduction 4+ Good+ Adduction 4 Good External Rotation 4 Good Internal Rotation 4 Good Knee Strength Knee Manual Muscle Testing Right Flexion (S2) 3+ Fair+ Extension (L3) 3 Fair Left Flexion (S2) 4 Good Extension (L3) 4+ Good+ Ankle/Foot Strength Ankle and Foot Manual Muscle Testing Right Dorsiflexion (L4) 2- Poor- Plantarflexion (S1) 3 Fair Left Dorsiflexion (L4) 4 Good Plantarflexion (S1) 4 Good PT-OP-Q Treatments Start: 10/12/18 10:42 Freq: Status: Active Protocol: Document 10/15/18 16:45 DCW (Rec: 10/15/18 17:36 DCW [id number]) Cardio Equipment Recumbent Elliptical (Biodex) Duration (Minutes) 5 Resistance 4 Seat Position 10 Gym Equipment Shuttle Recovery Unilateral Squats Resistance 50# Shuttle Recovery Platform Stable Bilateral Squats Resistance 75# Shuttle Recovery Platform Stable Therapeutic Exercises Sitting Exercises Piriformis Stretch Sitting Exercise Name Piriformis Side right Ankle Plantarflexion Sitting Exercise Name PF Resistance Lv 2 Equipment Used T-band Standing Exercises Plantar Flexion Standing Exercise Name Ankle PF Equipment Used NATALIE Gastroc Stretch Standing Exercise Name Gastroc Stretch Equipment Used NATALIE Other Exercises Resisted Fwd/Bkwd Ambulation Other Exercise Name Resisted Fwd/Bkwd Ambulation Resistance Yellow Equipment Used T-band Resisted Side-stepping Other Exercise Name Resisted Side-stepping Resistance Yellow Equipment Used T-band Gait Training Gait Activity Gait /c AFO Description Ambulating /c T-band acting as AFO Device Used T-band, Axillary crutches PT-OP-T Assessment and Plan Start: 10/12/18 10:42 Freq: Status: Active Protocol: Document 10/15/18 16:45 DCW (Rec: 10/15/18 17:36 DCW [id number]) Physical Therapy Assessment Impairments Impairments Activity Tolerance Functional Activities Functional Mobility Gait Pain ROM Strength Tone Goals Four Impairment Stairs Short Term Goal (STG) Pt to ascend/descend stairs with one railing using step- over-step gait pattern. STG Duration 11/11/18 Three Impairment R leg weakness Metal Buffer Goal (LTG) R leg MMT to 4-/5, with exception of R DF to 3/5 LTG Duration 12/11/18 Two Impairment Decreased activity tolerance Short Term Goal (STG) Pt to increased standing tolerance from two minutes to 10 minutes to improve ability to perform ADLs. STG Duration 11/11/18 Detention Goal (LTG) Pt to lift 15 pounds without losing balance or increasing pain LTG Duration 12/11/18 One Impairment Pt does not have an appropriate home exercie program Short Term Goal (STG) Pt to be independent and complaint with an appropriate HEP STG Duration 11/11/18 Assessment Summary Assessment Pt tolerated treatment well, appears to be motivated to work hard with HEP. Trial brace to limit drop foot improved pt's gait pattern, decreased steppage gait, and greatly decreased risk of pt dragging his toes. Pt may benefit from an AFO to limit drop-foot. Physical Therapy Plan Frequency and Duration Frequency of Treatment 2x/Week Duration of Treatment 10 weeks Plan of Care Start Date 10/11/18 Plan of Care End Date 12/20/18 Therapeutic Interventions Therapeutic Interventions Aquatic Therapy Coordination Training Gait Training Home Exercise Program Manual Therapy Neuromuscular Re-education Patient/Caregiver Education Self-Care/Home Management Soft Tissue Mobilization Therapeutic Activities Therapeutic Exercises Modalities Cold Pack/Ice Massage Electric Stimulation Hot Packs Ultrasound Other Referrals/Consults Referrals/Consults Recommended Request script for AFO to limit effects of drop-foot. Next Visit Focus/Plan Next Note Type Treatment Note Next Visit Plan LE strengthening, gait training, balance training, pain control.
--- NOTE | 2018-10-19 15:16 | PT.OTN ---
Current Diagnoses Other secondary scoliosis, lumbar region (10/19/18) Spondylolisthesis, lumbar region (10/19/18) Spinal stenosis, lumbar region with neurogenic claudication (10/19/18) Physical Therapy Treatment Note PT-OP-A Visit Information Start: 10/12/18 10:42 Freq: Status: Active Protocol: Document 10/19/18 14:30 DCW (Rec: 10/19/18 15:16 DCW [id number]) Out-Patient Physical Therapy Visit Information Visit Information Visit Type Treatment Note Visit Start Time 14:30 Visit Stop Time 15:15 Total Visit Minutes 45 Visit Number 3 Number of [employer]ET[employer] SCIENTIST Visits 0 Evaluation Information Evaluation Date 10/13/18 PT-OP-B Current Condition Start: 10/12/18 10:42 Freq: Status: Active Protocol: Document 10/11/18 12:15 DCW (Rec: 10/12/18 12:57 DCW [id number]) Current Condition History of Current Condition Onset Date 08/23/18 Current Complaints Back pain, R leg weakness, difficulty walking s/p L2-5 TLIF History of Current Condition Pt is a 58 year old male presenting nearly 2 months s/p L2-5 TLIF, cage, and bilateral posterior instrumentation secondary to spondylolisthesis, scoliosis, and lumbar spinal stenosis /c neurogenic claudication. Pt reports that prior to surgery, he had about 25% numbness in his right foot, up his right leg, and across his posterior hips. Following surgery, however, he has 90% numbness throughout his entire right leg and over to his left posterior hip. Pt notes he was able to walk in for his surgery, but has not been able to walk much since. Pt does note that since he took a prednisone pack three weeks ago, about 50% of the numbness has changed to pain, so I guess that's good, since I'm at least feeling something again. Pt reports that his neck will also need surgery, and is causing numbness and weakness into his hands, but his surgeon decided to get my back squared away first before worrying about the neck . 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 Pt reports that Dr Gibbons told him he could begin to perform very mild flexion/rotation as tolerated, but remember baby steps. Pt reports that at home, he ascends/descends his stairs 6x/day, using his SPC in his L hand and his R hand on a rail, but he has to go down backwards. Prior Treatments and Tests 2-5 TLIF, cage, and bilateral posterior instrumentation secondary to spondylolisthesis , scoliosis, and lumbar spinal stenosis /c neurogenic claudication Future Testing and Treatments Planned Likely cervical lami/fusion in the upcoming months Treatment Goals Patient/Caregiver Goals Pt would like to decrease the numbness in his leg, improve his current strength level, and to be able to stand up fo longer than a few minutes. Prior Functional Status Baseline Function- ADL's Independent Baseline Function- Mobility Independent Current Functional Impairments (Reported) Functional Limitations- ADL's Ambulates with SPC or FWW for longer distances, unable to shredder picker anything more than a few pounds and keep his balance, unable to stand independently longer than two minutes. PT-OP-C Subjective Start: 10/12/18 10:42 Freq: Status: Active Protocol: Document 10/19/18 14:30 DCW (Rec: 10/19/18 15:16 DCW [id number]) OP-PT Subjective Patient Comments Patient Comments Pt reports he mildly strained his hip trying to carry a few gallons of milk up his stairs earlier today, but other than that, everything feels the same. Pt does report he has been working to try to get his ankle moving a little more, and he thinks it has improved slightly. PT-OP-F Manual Assessment Start: 10/12/18 10:42 Freq: Status: Active Protocol: Document 10/11/18 12:15 DCW (Rec: 10/12/18 12:57 DCW [id number]) Manual Assessments Soft Tissue Assessment Soft Tissue Mobility Assessment Surgical incisions CDI, minimal edema in surgical area . Joint Mobility Assessment Joint Mobility Assessment Lumbar mobility significantly limited secondary to instrumentation, tone, and pain. PT-OP-G Mobility & Gait Start: 10/12/18 10:42 Freq: Status: Active Protocol: Document 10/11/18 12:15 DCW (Rec: 10/12/18 12:57 DCW [id number]) OP Gait Assessment Gait Gait Assistance Required: Standby Assistance Distance (Feet) 170 Able to Maintain Weight Bearing Status Yes During Gait Assistive Devices Assistive Device Front Wheeled Walker Orthotic/Prosthetic Devices or Brace: No Gait Deviations General Gait Pattern Antalgic Decreased Stride Length Flexed Trunk Lateral Trunk Lean Comments Gait Comments Steppage gait, trendelenberg lateral trunk flexion, R foot drop/slap. PT-OP-K Range of Motion Start: 10/12/18 10:42 Freq: Status: Active Protocol: Document 10/11/18 12:15 DCW (Rec: 10/12/18 12:57 DCW [id number]) Lumbar Spine Range of Motion Lumbar Spine Active Degrees Testing Position Sitting Flexion 12 Rotation Left 14 Rotation Right 16 ROM Limitations Soft Tissue Tightness Bony Restriction Muscle Tone Pain PT-OP-M Strength Start: 10/12/18 10:42 Freq: Status: Active Protocol: Document 10/11/18 12:15 DCW (Rec: 10/12/18 12:57 DCW [id number]) Hip Strength Hip Manual Muscle Testing Right Flexion (L2) 3 Fair Abduction 3+ Fair+ Adduction 3+ Fair+ External Rotation 3+ Fair+ Internal Rotation 3+ Fair+ Left Flexion (L2) 4+ Good+ Abduction 4+ Good+ Adduction 4 Good External Rotation 4 Good Internal Rotation 4 Good Knee Strength Knee Manual Muscle Testing Right Flexion (S2) 3+ Fair+ Extension (L3) 3 Fair Left Flexion (S2) 4 Good Extension (L3) 4+ Good+ Ankle/Foot Strength Ankle and Foot Manual Muscle Testing Right Dorsiflexion (L4) 2- Poor- Plantarflexion (S1) 3 Fair Left Dorsiflexion (L4) 4 Good Plantarflexion (S1) 4 Good PT-OP-Q Treatments Start: 10/12/18 10:42 Freq: Status: Active Protocol: Document 10/19/18 14:30 DCW (Rec: 10/19/18 15:16 DCW [id number]) Cardio Equipment Recumbent Elliptical (Biodex) Duration (Minutes) 5 Resistance 4 Seat Position 10 Gym Equipment Shuttle Recovery Unilateral Squats Resistance 50# Shuttle Recovery Platform Stable Bilateral Squats Resistance 87# Shuttle Recovery Platform Stable Shuttle Balance Red Details Wide MINISTERIO (EO/EC, Perturbations ), staggered stance Therapeutic Ball Trunk Rotations Exercise Details Minimal Trunk Rotations /c feet on ball Ball Size/Color Red - 55 cm Body Position Hooklying Therapeutic Exercises Sitting Exercises Long Arc Quads Sitting Exercise Name LAQ Side bilateral Resistance 5# Standing Exercises Hamstring Curls Standing Exercise Name HS Curls Side bilateral Resistance 5# Marching Standing Exercise Name Standing Marching Side bilateral Resistance 5# Other Exercises Resisted Fwd/Bkwd Ambulation Other Exercise Name Resisted Fwd/Bkwd Ambulation Resistance Yellow Equipment Used T-band Comments R hand on rail, L crutch Resisted Side-stepping Other Exercise Name Resisted Side-stepping Resistance Yellow Equipment Used T-band PT-OP-T Assessment and Plan Start: 10/12/18 10:42 Freq: Status: Active Protocol: Document 10/19/18 14:30 DCW (Rec: 10/19/18 15:16 DCW [id number]) Physical Therapy Assessment Impairments Impairments Activity Tolerance Functional Activities Functional Mobility Gait Pain ROM Strength Tone Goals Four Impairment Stairs Short Term Goal (STG) Pt to ascend/descend stairs with one railing using step- over-step gait pattern. STG Duration 11/11/18 Three Impairment R leg weakness Skilled Nursing Goal (LTG) R leg MMT to 4-/5, with exception of R DF to 3/5 LTG Duration 12/11/18 Two Impairment Decreased activity tolerance Short Term Goal (STG) Pt to increased standing tolerance from two minutes to 10 minutes to improve ability to perform ADLs. STG Duration 11/11/18 Skilled Nursing Goal (LTG) Pt to lift 15 pounds without losing balance or increasing pain LTG Duration 12/11/18 One Impairment Pt does not have an appropriate home exercie program Short Term Goal (STG) Pt to be independent and complaint with an appropriate HEP STG Duration 11/11/18 Assessment Summary Assessment Pt continues to tolerate treatment well. Initially today was questionable with use of potential AFO, however was agreeable after discussion . Physical Therapy Plan Frequency and Duration Frequency of Treatment 2x/Week Duration of Treatment 10 weeks Plan of Care Start Date 10/11/18 Plan of Care End Date 12/20/18 Therapeutic Interventions Therapeutic Interventions Aquatic Therapy Coordination Training Gait Training Home Exercise Program Manual Therapy Neuromuscular Re-education Patient/Caregiver Education Self-Care/Home Management Soft Tissue Mobilization Therapeutic Activities Therapeutic Exercises Modalities Cold Pack/Ice Massage Electric Stimulation Hot Packs Ultrasound Other Referrals/Consults Referrals/Consults Recommended Request script for AFO to limit effects of drop-foot. Next Visit Focus/Plan Next Note Type Treatment Note Next Visit Plan LE strengthening, gait training, balance training, pain control.
--- NOTE | 2018-10-23 12:43 | PT.OTN ---
Current Diagnoses Other secondary scoliosis, lumbar region (10/23/18) Spondylolisthesis, lumbar region (10/23/18) Spinal stenosis, lumbar region with neurogenic claudication (10/23/18) Physical Therapy Treatment Note PT-OP-A Visit Information Start: 10/12/18 10:42 Freq: Status: Active Protocol: Document 10/23/18 12:00 DCW (Rec: 10/23/18 12:43 DCW [id number]) Out-Patient Physical Therapy Visit Information Visit Information Visit Type Treatment Note Visit Start Time 12:00 Visit Stop Time 12:45 Total Visit Minutes 45 Visit Number 4 Number of REGULATORY COMPLIANCE DIRECTOR Visits 0 Evaluation Information Evaluation Date 10/13/18 PT-OP-B Current Condition Start: 10/12/18 10:42 Freq: Status: Active Protocol: Document 10/11/18 12:15 DCW (Rec: 10/12/18 12:57 DCW [id number]) Current Condition History of Current Condition Onset Date 08/23/18 Current Complaints Back pain, R leg weakness, difficulty walking s/p L2-5 TLIF History of Current Condition Pt is a 58 year old male presenting nearly 2 months s/p L2-5 TLIF, cage, and bilateral posterior instrumentation secondary to spondylolisthesis, scoliosis, and lumbar spinal stenosis /c neurogenic claudication. Pt reports that prior to surgery, he had about 25% numbness in his right foot, up his right leg, and across his posterior hips. Following surgery, however, he has 90% numbness throughout his entire right leg and over to his left posterior hip. Pt notes he was able to walk in for his surgery, but has not been able to walk much since. Pt does note that since he took a prednisone pack three weeks ago, about 50% of the numbness has changed to pain, so I guess that's good, since I'm at least feeling something again. Pt reports that his neck will also need surgery, and is causing numbness and weakness into his hands, but his surgeon decided to get my back squared away first before worrying about the neck . 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 Pt reports that Dr Gibbons told him he could begin to perform very mild flexion/rotation as tolerated, but remember baby steps. Pt reports that at home, he ascends/descends his stairs 6x/day, using his SPC in his L hand and his R hand on a rail, but he has to go down backwards. Prior Treatments and Tests 2-5 TLIF, cage, and bilateral posterior instrumentation secondary to spondylolisthesis , scoliosis, and lumbar spinal stenosis /c neurogenic claudication Future Testing and Treatments Planned Likely cervical lami/fusion in the upcoming months Treatment Goals Patient/Caregiver Goals Pt would like to decrease the numbness in his leg, improve his current strength level, and to be able to stand up fo longer than a few minutes. Prior Functional Status Baseline Function- ADL's Independent Baseline Function- Mobility Independent Current Functional Impairments (Reported) Functional Limitations- ADL's Ambulates with SPC or FWW for longer distances, unable to crop picker anything more than a few pounds and keep his balance, unable to stand independently longer than two minutes. PT-OP-C Subjective Start: 10/12/18 10:42 Freq: Status: Active Protocol: Document 10/23/18 12:00 DCW (Rec: 10/23/18 12:43 DCW [id number]) OP-PT Subjective Patient Comments Patient Comments Pt notes that he was doing more walking than normal over the weekend, so he is a little more sore today. PT-OP-F Manual Assessment Start: 10/12/18 10:42 Freq: Status: Active Protocol: Document 10/11/18 12:15 DCW (Rec: 10/12/18 12:57 DCW [id number]) Manual Assessments Soft Tissue Assessment Soft Tissue Mobility Assessment Surgical incisions CDI, minimal edema in surgical area . Joint Mobility Assessment Joint Mobility Assessment Lumbar mobility significantly limited secondary to instrumentation, tone, and pain. PT-OP-G Mobility & Gait Start: 10/12/18 10:42 Freq: Status: Active Protocol: Document 10/11/18 12:15 DCW (Rec: 10/12/18 12:57 DCW [id number]) OP Gait Assessment Gait Gait Assistance Required: Standby Assistance Distance (Feet) 170 Able to Maintain Weight Bearing Status Yes During Gait Assistive Devices Assistive Device Front Wheeled Walker Orthotic/Prosthetic Devices or Brace: No Gait Deviations General Gait Pattern Antalgic Decreased Stride Length Flexed Trunk Lateral Trunk Lean Comments Gait Comments Steppage gait, trendelenberg lateral trunk flexion, R foot drop/slap. PT-OP-K Range of Motion Start: 10/12/18 10:42 Freq: Status: Active Protocol: Document 10/11/18 12:15 DCW (Rec: 10/12/18 12:57 DCW [id number]) Lumbar Spine Range of Motion Lumbar Spine Active Degrees Testing Position Sitting Flexion 12 Rotation Left 14 Rotation Right 16 ROM Limitations Soft Tissue Tightness Bony Restriction Muscle Tone Pain PT-OP-M Strength Start: 10/12/18 10:42 Freq: Status: Active Protocol: Document 10/11/18 12:15 DCW (Rec: 10/12/18 12:57 DCW [id number]) Hip Strength Hip Manual Muscle Testing Right Flexion (L2) 3 Fair Abduction 3+ Fair+ Adduction 3+ Fair+ External Rotation 3+ Fair+ Internal Rotation 3+ Fair+ Left Flexion (L2) 4+ Good+ Abduction 4+ Good+ Adduction 4 Good External Rotation 4 Good Internal Rotation 4 Good Knee Strength Knee Manual Muscle Testing Right Flexion (S2) 3+ Fair+ Extension (L3) 3 Fair Left Flexion (S2) 4 Good Extension (L3) 4+ Good+ Ankle/Foot Strength Ankle and Foot Manual Muscle Testing Right Dorsiflexion (L4) 2- Poor- Plantarflexion (S1) 3 Fair Left Dorsiflexion (L4) 4 Good Plantarflexion (S1) 4 Good PT-OP-Q Treatments Start: 10/12/18 10:42 Freq: Status: Active Protocol: Document 10/23/18 12:00 DCW (Rec: 10/23/18 12:43 DCW [id number]) Cardio Equipment Recumbent Elliptical (Biodex) Duration (Minutes) 5 Resistance 4 Seat Position 10 Gym Equipment Shuttle Recovery Unilateral Squats Resistance 50# Shuttle Recovery Platform Stable Bilateral Squats Resistance 87# Shuttle Recovery Platform Stable Therapeutic Exercises Supine Exercises SLR Supine Exercise Name SLR Side bilateral Reps/Minutes x15 PPT /c Marching Supine Exercise Name PPT/TrA - Alternating Marching PPT /c TrA Supine Exercise Name PPT /c TrA contraction Reps/Minutes 5 hold Sitting Exercises Gentle Lumbar Rotation Sitting Exercise Name Lumbar Rotation vs Resistance Side bilateral Resistance Lv 3 Equipment Used T-band Long Arc Quads Sitting Exercise Name LAQ Side bilateral Resistance 5# Standing Exercises Marching Standing Exercise Name Standing Marching Side bilateral Resistance 5# Other Exercises Resisted Fwd/Bkwd Ambulation Other Exercise Name Resisted Fwd/Bkwd Ambulation Resistance Yellow Equipment Used T-band Comments R hand on rail, L crutch Resisted Side-stepping Other Exercise Name Resisted Side-stepping Resistance Yellow Equipment Used T-band PT-OP-T Assessment and Plan Start: 10/12/18 10:42 Freq: Status: Active Protocol: Document 10/23/18 12:00 DCW (Rec: 10/23/18 12:43 DCW [id number]) Physical Therapy Assessment Impairments Impairments Activity Tolerance Functional Activities Functional Mobility Gait Pain ROM Strength Tone Goals Four Impairment Stairs Short Term Goal (STG) Pt to ascend/descend stairs with one railing using step- over-step gait pattern. STG Duration 11/11/18 Three Impairment R leg weakness Group Home Goal (LTG) R leg MMT to 4-/5, with exception of R DF to 3/5 LTG Duration 12/11/18 Two Impairment Decreased activity tolerance Short Term Goal (STG) Pt to increased standing tolerance from two minutes to 10 minutes to improve ability to perform ADLs. STG Duration 11/11/18 Group Home Goal (LTG) Pt to lift 15 pounds without losing balance or increasing pain LTG Duration 12/11/18 One Impairment Pt does not have an appropriate home exercie program Short Term Goal (STG) Pt to be independent and complaint with an appropriate HEP STG Duration 11/11/18 Assessment Summary Assessment Pt noticably fatigued following treatment today, but was able to perform all requested activities. Physical Therapy Plan Frequency and Duration Frequency of Treatment 2x/Week Duration of Treatment 10 weeks Plan of Care Start Date 10/11/18 Plan of Care End Date 12/20/18 Therapeutic Interventions Therapeutic Interventions Aquatic Therapy Coordination Training Gait Training Home Exercise Program Manual Therapy Neuromuscular Re-education Patient/Caregiver Education Self-Care/Home Management Soft Tissue Mobilization Therapeutic Activities Therapeutic Exercises Modalities Cold Pack/Ice Massage Electric Stimulation Hot Packs Ultrasound Other Referrals/Consults Referrals/Consults Recommended Request script for AFO to limit effects of drop-foot. Next Visit Focus/Plan Next Note Type Treatment Note Next Visit Plan LE strengthening, gait training, balance training, pain control.
--- NOTE | 2018-10-26 15:21 | PT.OTN ---
Current Diagnoses Other secondary scoliosis, lumbar region (10/26/18) Spondylolisthesis, lumbar region (10/26/18) Spinal stenosis, lumbar region with neurogenic claudication (10/26/18) Physical Therapy Treatment Note PT-OP-A Visit Information Start: 10/12/18 10:42 Freq: Status: Active Protocol: Document 10/26/18 14:30 DCW (Rec: 10/26/18 15:20 DCW [id number]) Out-Patient Physical Therapy Visit Information Visit Information Visit Type Treatment Note Visit Start Time 14:30 Visit Stop Time 15:15 Total Visit Minutes 45 Visit Number 5 Number of SHUTTLE FINAL INSPECTOR Visits 0 Evaluation Information Evaluation Date 10/13/18 PT-OP-B Current Condition Start: 10/12/18 10:42 Freq: Status: Active Protocol: Document 10/11/18 12:15 DCW (Rec: 10/12/18 12:57 DCW [id number]) Current Condition History of Current Condition Onset Date 08/23/18 Current Complaints Back pain, R leg weakness, difficulty walking s/p L2-5 TLIF History of Current Condition Pt is a 58 year old male presenting nearly 2 months s/p L2-5 TLIF, cage, and bilateral posterior instrumentation secondary to spondylolisthesis, scoliosis, and lumbar spinal stenosis /c neurogenic claudication. Pt reports that prior to surgery, he had about 25% numbness in his right foot, up his right leg, and across his posterior hips. Following surgery, however, he has 90% numbness throughout his entire right leg and over to his left posterior hip. Pt notes he was able to walk in for his surgery, but has not been able to walk much since. Pt does note that since he took a prednisone pack three weeks ago, about 50% of the numbness has changed to pain, so I guess that's good, since I'm at least feeling something again. Pt reports that his neck will also need surgery, and is causing numbness and weakness into his hands, but his surgeon decided to get my back squared away first before worrying about the neck . 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 Pt reports that Dr Gibbons told him he could begin to perform very mild flexion/rotation as tolerated, but remember baby steps. Pt reports that at home, he ascends/descends his stairs 6x/day, using his SPC in his L hand and his R hand on a rail, but he has to go down backwards. Prior Treatments and Tests 2-5 TLIF, cage, and bilateral posterior instrumentation secondary to spondylolisthesis , scoliosis, and lumbar spinal stenosis /c neurogenic claudication Future Testing and Treatments Planned Likely cervical lami/fusion in the upcoming months Treatment Goals Patient/Caregiver Goals Pt would like to decrease the numbness in his leg, improve his current strength level, and to be able to stand up fo longer than a few minutes. 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 PT-OP-C Subjective Start: 10/12/18 10:42 Freq: Status: Active Protocol: Document 10/26/18 14:30 DCW (Rec: 10/26/18 15:20 DCW [id number]) OP-PT Subjective Patient Comments Patient Comments I actually feel prison decent this week. Pt notes he was able to get outside and do a little something resembling yard work, and happily reports that heis finally able to reach down to his toes. PT-OP-F Manual Assessment Start: 10/12/18 10:42 Freq: Status: Active Protocol: Document 10/11/18 12:15 DCW (Rec: 10/12/18 12:57 DCW [id number]) Manual Assessments Soft Tissue Assessment Soft Tissue Mobility Assessment Surgical incisions CDI, minimal edema in surgical area . Joint Mobility Assessment Joint Mobility Assessment Lumbar mobility significantly limited secondary to instrumentation, tone, and pain. PT-OP-G Mobility & Gait Start: 10/12/18 10:42 Freq: Status: Active Protocol: Document 10/11/18 12:15 DCW (Rec: 10/12/18 12:57 DCW [id number]) OP Gait Assessment Gait Gait Assistance Required: Standby Assistance Distance (Feet) 170 Able to Maintain Weight Bearing Status Yes During Gait Assistive Devices Assistive Device Front Wheeled Walker Orthotic/Prosthetic Devices or Brace: No Gait Deviations General Gait Pattern Antalgic Decreased Stride Length Flexed Trunk Lateral Trunk Lean Comments Gait Comments Steppage gait, trendelenberg lateral trunk flexion, R foot drop/slap. PT-OP-K Range of Motion Start: 10/12/18 10:42 Freq: Status: Active Protocol: Document 10/11/18 12:15 DCW (Rec: 10/12/18 12:57 DCW [id number]) Lumbar Spine Range of Motion Lumbar Spine Active Degrees Testing Position Sitting Flexion 12 Rotation Left 14 Rotation Right 16 ROM Limitations Soft Tissue Tightness Bony Restriction Muscle Tone Pain PT-OP-M Strength Start: 10/12/18 10:42 Freq: Status: Active Protocol: Document 10/11/18 12:15 DCW (Rec: 10/12/18 12:57 DCW [id number]) Hip Strength Hip Manual Muscle Testing Right Flexion (L2) 3 Fair Abduction 3+ Fair+ Adduction 3+ Fair+ External Rotation 3+ Fair+ Internal Rotation 3+ Fair+ Left Flexion (L2) 4+ Good+ Abduction 4+ Good+ Adduction 4 Good External Rotation 4 Good Internal Rotation 4 Good Knee Strength Knee Manual Muscle Testing Right Flexion (S2) 3+ Fair+ Extension (L3) 3 Fair Left Flexion (S2) 4 Good Extension (L3) 4+ Good+ Ankle/Foot Strength Ankle and Foot Manual Muscle Testing Right Dorsiflexion (L4) 2- Poor- Plantarflexion (S1) 3 Fair Left Dorsiflexion (L4) 4 Good Plantarflexion (S1) 4 Good PT-OP-Q Treatments Start: 10/12/18 10:42 Freq: Status: Active Protocol: Document 10/26/18 14:30 DCW (Rec: 10/26/18 15:20 DCW [id number]) Cardio Equipment Recumbent Elliptical (Biodex) Duration (Minutes) 5 Resistance 5 Seat Position 10 Gym Equipment Shuttle Recovery Unilateral Squats Resistance 62# Shuttle Recovery Platform Stable Bilateral Squats Resistance 100# Shuttle Recovery Platform Stable Shuttle Balance Red Details Wide MINISTERIO (EO/EC, Perturbations ), staggered stance Therapeutic Ball Bridging Exercise Details Bridging /c feet on T-ball Ball Size/Color Red - 55 cm Body Position Supine Trunk Rotations Exercise Details Minimal Trunk Rotations /c feet on ball Ball Size/Color Red - 55 cm Body Position Hooklying Therapeutic Exercises Supine Exercises Hamstring Stretch Supine Exercise Name HS stretch Side bilateral Piriformis Stretch Supine Exercise Name Figure-4, Anda-ef-fawygwqb shoulder Side bilateral Other Exercises Resisted Fwd/Bkwd Ambulation Other Exercise Name Resisted Fwd/Bkwd Ambulation Resistance Green Equipment Used T-band Comments R hand on rail, L crutch Resisted Side-stepping Other Exercise Name Resisted Side-stepping Resistance Green Equipment Used T-band PT-OP-T Assessment and Plan Start: 10/12/18 10:42 Freq: Status: Active Protocol: Document 10/26/18 14:30 DCW (Rec: 10/26/18 15:20 DCW [id number]) Physical Therapy Assessment Impairments Impairments Activity Tolerance Functional Activities Functional Mobility Gait Pain ROM Strength Tone Goals Four Impairment Stairs Short Term Goal (STG) Pt to ascend/descend stairs with one railing using step- over-step gait pattern. STG Duration 11/11/18 Three Impairment R leg weakness Alf Goal (LTG) R leg MMT to 4-/5, with exception of R DF to 3/5 LTG Duration 12/11/18 Two Impairment Decreased activity tolerance Short Term Goal (STG) Pt to increased standing tolerance from two minutes to 10 minutes to improve ability to perform ADLs. STG Duration 11/11/18 Dragger Out Goal (LTG) Pt to lift 15 pounds without losing balance or increasing pain LTG Duration 12/11/18 One Impairment Pt does not have an appropriate home exercise program Short Term Goal (STG) Pt to be independent and complaint with an appropriate HEP STG Duration 11/11/18 Assessment Summary Assessment Pt felt better leaving today after working on stretching/ flexibility after TherEx today . Physical Therapy Plan Frequency and Duration Frequency of Treatment 2x/Week Duration of Treatment 10 weeks Plan of Care Start Date 10/11/18 Plan of Care End Date 12/20/18 Therapeutic Interventions Therapeutic Interventions Aquatic Therapy Coordination Training Gait Training Home Exercise Program Manual Therapy Neuromuscular Re-education Patient/Caregiver Education Self-Care/Home Management Soft Tissue Mobilization Therapeutic Activities Therapeutic Exercises Modalities Cold Pack/Ice Massage Electric Stimulation Hot Packs Ultrasound Other Referrals/Consults Referrals/Consults Recommended Request script for AFO to limit effects of drop-foot. Next Visit Focus/Plan Next Note Type Treatment Note Next Visit Plan LE strengthening, gait training, balance training, pain control.
--- NOTE | 2018-10-30 14:06 | PT.OTN ---
Current Diagnoses Other secondary scoliosis, lumbar region (10/30/18) Spondylolisthesis, lumbar region (10/30/18) Spinal stenosis, lumbar region with neurogenic claudication (10/30/18) Physical Therapy Treatment Note PT-OP-A Visit Information Start: 10/12/18 10:42 Freq: Status: Active Protocol: Document 10/30/18 13:51 SA (Rec: 10/30/18 14:06 SA [id number]) Out-Patient Physical Therapy Visit Information Visit Information Visit Type Treatment Note Visit Start Time 12:15 Visit Stop Time 13:00 Total Visit Minutes 45 Visit Number 6 Number of TURBO ELECTRIC OPERATOR Visits 1 PT-OP-B Current Condition Start: 10/12/18 10:42 Freq: Status: Active Protocol: Document 10/11/18 12:15 DCW (Rec: 10/12/18 12:57 DCW [id number]) Current Condition History of Current Condition Onset Date 08/23/18 Current Complaints Back pain, R leg weakness, difficulty walking s/p L2-5 TLIF History of Current Condition Pt is a 58 year old male presenting nearly 2 months s/p L2-5 TLIF, cage, and bilateral posterior instrumentation secondary to spondylolisthesis, scoliosis, and lumbar spinal stenosis /c neurogenic claudication. Pt reports that prior to surgery, he had about 25% numbness in his right foot, up his right leg, and across his posterior hips. Following surgery, however, he has 90% numbness throughout his entire right leg and over to his left posterior hip. Pt notes he was able to walk in for his surgery, but has not been able to walk much since. Pt does note that since he took a prednisone pack three weeks ago, about 50% of the numbness has changed to pain, so I guess that's good, since I'm at least feeling something again. Pt reports that his neck will also need surgery, and is causing numbness and weakness into his hands, but his surgeon decided to get my back squared away first before worrying about the neck . 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 Pt reports that Dr Gibbons told him he could begin to perform very mild flexion/rotation as tolerated, but remember baby steps. Pt reports that at home, he ascends/descends his stairs 6x/day, using his SPC in his L hand and his R hand on a rail, but he has to go down backwards. Prior Treatments and Tests 2-5 TLIF, cage, and bilateral posterior instrumentation secondary to spondylolisthesis , scoliosis, and lumbar spinal stenosis /c neurogenic claudication Future Testing and Treatments Planned Likely cervical lami/fusion in the upcoming months Treatment Goals Patient/Caregiver Goals Pt would like to decrease the numbness in his leg, improve his current strength level, and to be able to stand up fo longer than a few minutes. Prior Functional Status Baseline Function- ADL's Independent Baseline Function- Mobility Independent Current Functional Impairments (Reported) Functional Limitations- ADL's Ambulates with SPC or FWW for longer distances, unable to grain picker anything more than a few pounds and keep his balance, unable to stand independently longer than two minutes. PT-OP-C Subjective Start: 10/12/18 10:42 Freq: Status: Active Protocol: Document 10/30/18 13:51 SA (Rec: 10/30/18 14:06 SA [id number]) OP-PT Subjective Patient Comments Patient Comments Pt denies hip pain today but states he still has incidents of it feeling unstable. Using crutches more than B canes. PT-OP-F Manual Assessment Start: 10/12/18 10:42 Freq: Status: Active Protocol: Document 10/11/18 12:15 DCW (Rec: 10/12/18 12:57 DCW [id number]) Manual Assessments Soft Tissue Assessment Soft Tissue Mobility Assessment Surgical incisions CDI, minimal edema in surgical area . Joint Mobility Assessment Joint Mobility Assessment Lumbar mobility significantly limited secondary to instrumentation, tone, and pain. PT-OP-G Mobility & Gait Start: 10/12/18 10:42 Freq: Status: Active Protocol: Document 10/11/18 12:15 DCW (Rec: 10/12/18 12:57 DCW [id number]) OP Gait Assessment Gait Gait Assistance Required: Standby Assistance Distance (Feet) 170 Able to Maintain Weight Bearing Status Yes During Gait Assistive Devices Assistive Device Front Wheeled Walker Orthotic/Prosthetic Devices or Brace: No Gait Deviations General Gait Pattern Antalgic Decreased Stride Length Flexed Trunk Lateral Trunk Lean Comments Gait Comments Steppage gait, trendelenberg lateral trunk flexion, R foot drop/slap. PT-OP-K Range of Motion Start: 10/12/18 10:42 Freq: Status: Active Protocol: Document 10/11/18 12:15 DCW (Rec: 10/12/18 12:57 DCW [id number]) Lumbar Spine Range of Motion Lumbar Spine Active Degrees Testing Position Sitting Flexion 12 Rotation Left 14 Rotation Right 16 ROM Limitations Soft Tissue Tightness Bony Restriction Muscle Tone Pain PT-OP-M Strength Start: 10/12/18 10:42 Freq: Status: Active Protocol: Document 10/11/18 12:15 DCW (Rec: 10/12/18 12:57 DCW [id number]) Hip Strength Hip Manual Muscle Testing Right Flexion (L2) 3 Fair Abduction 3+ Fair+ Adduction 3+ Fair+ External Rotation 3+ Fair+ Internal Rotation 3+ Fair+ Left Flexion (L2) 4+ Good+ Abduction 4+ Good+ Adduction 4 Good External Rotation 4 Good Internal Rotation 4 Good Knee Strength Knee Manual Muscle Testing Right Flexion (S2) 3+ Fair+ Extension (L3) 3 Fair Left Flexion (S2) 4 Good Extension (L3) 4+ Good+ Ankle/Foot Strength Ankle and Foot Manual Muscle Testing Right Dorsiflexion (L4) 2- Poor- Plantarflexion (S1) 3 Fair Left Dorsiflexion (L4) 4 Good Plantarflexion (S1) 4 Good PT-OP-Q Treatments Start: 10/12/18 10:42 Freq: Status: Active Protocol: Document 10/30/18 13:51 SA (Rec: 10/30/18 14:06 SA [email or web address]) Cardio Equipment Recumbent Elliptical (Biodex) Duration (Minutes) 5 Resistance 6 Seat Position 10 Gym Equipment Shuttle Recovery Unilateral Squats Resistance 62# Shuttle Recovery Platform Stable Bilateral Squats Resistance 100# Shuttle Recovery Platform Stable Reps/Time 2 x 10 Shuttle Balance Red Details Wide MINISTERIO (EO/EC, Perturbations ), staggered stance Reps/Duration 5 min Comments staggered stance, UE movements Therapeutic Ball Bridging Exercise Details Bridging /c feet on T-ball Ball Size/Color Red - 55 cm Body Position Supine Trunk Rotations Exercise Details Minimal Trunk Rotations /c feet on ball Ball Size/Color Red - 55 cm Body Position Hooklying Therapeutic Exercises Supine Exercises Hamstring Stretch Supine Exercise Name HS stretch Side bilateral Reps/Minutes 30 x 2 Comments manual Piriformis Stretch Supine Exercise Name Figure-4, Gjvy-hb-cekdflrm shoulder Side bilateral Reps/Minutes 30 x 2 Comments manual Sitting Exercises Gentle Lumbar Rotation Sitting Exercise Name Lumbar Rotation vs Resistance Side bilateral Resistance Lv 3 Equipment Used T-band Standing Exercises Marching Standing Exercise Name Standing Marching Side bilateral Resistance 5# Other Exercises Resisted Fwd/Bkwd Ambulation Other Exercise Name Resisted Fwd/Bkwd Ambulation Resistance Green Equipment Used T-band Comments R hand on rail, L crutch Resisted Side-stepping Other Exercise Name Resisted Side-stepping Resistance Green Equipment Used T-band PT-OP-T Assessment and Plan Start: 10/12/18 10:42 Freq: Status: Active Protocol: Document 10/30/18 13:51 SA (Rec: 10/30/18 14:06 SA [email or web address]) Physical Therapy Assessment Assessment Summary Assessment Pt tolerated treatment well, stretching after strengthening ther ex. Pt somewhat consistent with HEP. Physical Therapy Plan Next Visit Focus/Plan Next Note Type Treatment Note Next Visit Plan Continue to progress, gait training, LE strengthening and dynamic balance training as tolerated.
--- NOTE | 2018-11-02 15:12 | PT.OTN ---
Current Diagnoses Other secondary scoliosis, lumbar region (11/02/18) Spondylolisthesis, lumbar region (11/02/18) Spinal stenosis, lumbar region with neurogenic claudication (11/02/18) Physical Therapy Treatment Note PT-OP-A Visit Information Start: 10/12/18 10:42 Freq: Status: Active Protocol: Document 11/02/18 14:30 DCW (Rec: 11/02/18 15:12 DCW [id number]) Out-Patient Physical Therapy Visit Information Visit Information Visit Type Treatment Note Visit Start Time 14:30 Visit Stop Time 15:15 Total Visit Minutes 45 Visit Number 7 Number of ADMINISTRATION PHYSICIAN Visits 0 Evaluation Information Evaluation Date 10/13/18 PT-OP-B Current Condition Start: 10/12/18 10:42 Freq: Status: Active Protocol: Document 10/11/18 12:15 DCW (Rec: 10/12/18 12:57 DCW [id number]) Current Condition History of Current Condition Onset Date 08/23/18 Current Complaints Back pain, R leg weakness, difficulty walking s/p L2-5 TLIF History of Current Condition Pt is a 58 year old male presenting nearly 2 months s/p L2-5 TLIF, cage, and bilateral posterior instrumentation secondary to spondylolisthesis, scoliosis, and lumbar spinal stenosis /c neurogenic claudication. Pt reports that prior to surgery, he had about 25% numbness in his right foot, up his right leg, and across his posterior hips. Following surgery, however, he has 90% numbness throughout his entire right leg and over to his left posterior hip. Pt notes he was able to walk in for his surgery, but has not been able to walk much since. Pt does note that since he took a prednisone pack three weeks ago, about 50% of the numbness has changed to pain, so I guess that's good, since I'm at least feeling something again. Pt reports that his neck will also need surgery, and is causing numbness and weakness into his hands, but his surgeon decided to get my back squared away first before worrying about the neck . 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 Pt reports that Dr Gibbons told him he could begin to perform very mild flexion/rotation as tolerated, but remember baby steps. Pt reports that at home, he ascends/descends his stairs 6x/day, using his SPC in his L hand and his R hand on a rail, but he has to go down backwards. Prior Treatments and Tests 2-5 TLIF, cage, and bilateral posterior instrumentation secondary to spondylolisthesis , scoliosis, and lumbar spinal stenosis /c neurogenic claudication Future Testing and Treatments Planned Likely cervical lami/fusion in the upcoming months Treatment Goals Patient/Caregiver Goals Pt would like to decrease the numbness in his leg, improve his current strength level, and to be able to stand up fo longer than a few minutes. Prior Functional Status Baseline Function- ADL's Independent Baseline Function- Mobility Independent Current Functional Impairments (Reported) Functional Limitations- ADL's Ambulates with SPC or FWW for longer distances, unable to pick and shovel man anything more than a few pounds and keep his balance, unable to stand independently longer than two minutes. PT-OP-C Subjective Start: 10/12/18 10:42 Freq: Status: Active Protocol: Document 11/02/18 14:30 DCW (Rec: 11/02/18 15:12 DCW [id number]) OP-PT Subjective Patient Comments Patient Comments Pt reports he was working outside in his yard yesterday, and still feels pretty good today. PT-OP-F Manual Assessment Start: 10/12/18 10:42 Freq: Status: Active Protocol: Document 10/11/18 12:15 DCW (Rec: 10/12/18 12:57 DCW [id number]) Manual Assessments Soft Tissue Assessment Soft Tissue Mobility Assessment Surgical incisions CDI, minimal edema in surgical area . Joint Mobility Assessment Joint Mobility Assessment Lumbar mobility significantly limited secondary to instrumentation, tone, and pain. PT-OP-G Mobility & Gait Start: 10/12/18 10:42 Freq: Status: Active Protocol: Document 10/11/18 12:15 DCW (Rec: 10/12/18 12:57 DCW [id number]) OP Gait Assessment Gait Gait Assistance Required: Standby Assistance Distance (Feet) 170 Able to Maintain Weight Bearing Status Yes During Gait Assistive Devices Assistive Device Front Wheeled Walker Orthotic/Prosthetic Devices or Brace: No Gait Deviations General Gait Pattern Antalgic Decreased Stride Length Flexed Trunk Lateral Trunk Lean Comments Gait Comments Steppage gait, trendelenberg lateral trunk flexion, R foot drop/slap. PT-OP-K Range of Motion Start: 10/12/18 10:42 Freq: Status: Active Protocol: Document 10/11/18 12:15 DCW (Rec: 10/12/18 12:57 DCW [id number]) Lumbar Spine Range of Motion Lumbar Spine Active Degrees Testing Position Sitting Flexion 12 Rotation Left 14 Rotation Right 16 ROM Limitations Soft Tissue Tightness Bony Restriction Muscle Tone Pain PT-OP-M Strength Start: 10/12/18 10:42 Freq: Status: Active Protocol: Document 10/11/18 12:15 DCW (Rec: 10/12/18 12:57 DCW [id number]) Hip Strength Hip Manual Muscle Testing Right Flexion (L2) 3 Fair Abduction 3+ Fair+ Adduction 3+ Fair+ External Rotation 3+ Fair+ Internal Rotation 3+ Fair+ Left Flexion (L2) 4+ Good+ Abduction 4+ Good+ Adduction 4 Good External Rotation 4 Good Internal Rotation 4 Good Knee Strength Knee Manual Muscle Testing Right Flexion (S2) 3+ Fair+ Extension (L3) 3 Fair Left Flexion (S2) 4 Good Extension (L3) 4+ Good+ Ankle/Foot Strength Ankle and Foot Manual Muscle Testing Right Dorsiflexion (L4) 2- Poor- Plantarflexion (S1) 3 Fair Left Dorsiflexion (L4) 4 Good Plantarflexion (S1) 4 Good PT-OP-Q Treatments Start: 10/12/18 10:42 Freq: Status: Active Protocol: Document 11/02/18 14:30 DCW (Rec: 11/02/18 15:12 DCW [id number]) Cardio Equipment Recumbent Elliptical (Biodex) Duration (Minutes) 5 Resistance 6 Seat Position 10 Gym Equipment Shuttle Recovery Unilateral Squats Resistance 62# Shuttle Recovery Platform Stable Bilateral Squats Resistance 100# Shuttle Recovery Platform Stable Reps/Time x30 Shuttle Balance Red Details Wide MINISTERIO (EO/EC, Perturbations ), staggered stance Therapeutic Ball Bridging Exercise Details Bridging /c feet on T-ball Ball Size/Color Red - 55 cm Body Position Supine Trunk Rotations Exercise Details Minimal Trunk Rotations /c feet on ball Ball Size/Color Red - 55 cm Body Position Hooklying Therapeutic Exercises Supine Exercises Bridging Supine Exercise Name Bridging Hamstring Stretch Supine Exercise Name HS stretch Side bilateral Piriformis Stretch Supine Exercise Name Figure-4, Bwrl-ib-hgrhtmdp shoulder Side bilateral Other Exercises Resisted Fwd/Bkwd Ambulation Other Exercise Name Resisted Fwd/Bkwd Ambulation Resistance Green Equipment Used T-band Comments R hand on rail, L crutch Resisted Side-stepping Other Exercise Name Resisted Side-stepping Resistance Green Equipment Used T-band PT-OP-T Assessment and Plan Start: 10/12/18 10:42 Freq: Status: Active Protocol: Document 11/02/18 14:30 DCW (Rec: 11/02/18 15:12 DCW [id number]) Physical Therapy Assessment Impairments Impairments Activity Tolerance Functional Activities Functional Mobility Gait Pain ROM Strength Tone Goals Four Impairment Stairs Short Term Goal (STG) Pt to ascend/descend stairs with one railing using step- over-step gait pattern. STG Duration 11/11/18 Three Impairment R leg weakness Longterm Goal (LTG) R leg MMT to 4-/5, with exception of R DF to 3/5 LTG Duration 12/11/18 Two Impairment Decreased activity tolerance Short Term Goal (STG) Pt to increased standing tolerance from two minutes to 10 minutes to improve ability to perform ADLs. STG Duration 11/11/18 Longterm Goal (LTG) Pt to lift 15 pounds without losing balance or increasing pain LTG Duration 12/11/18 One Impairment Pt does not have an appropriate home exercise program Short Term Goal (STG) Pt to be independent and complaint with an appropriate HEP STG Duration 11/11/18 Assessment Summary Assessment Pt continues to progress well, feels like he is getting stronger and has better tolerance to activity, still struggles ambulating without an assistive device because he just doesn't trust his hip to support him. Physical Therapy Plan Frequency and Duration Frequency of Treatment 2x/Week Duration of Treatment 10 weeks Plan of Care Start Date 10/11/18 Plan of Care End Date 12/20/18 Therapeutic Interventions Therapeutic Interventions Aquatic Therapy Coordination Training Gait Training Home Exercise Program Manual Therapy Neuromuscular Re-education Patient/Caregiver Education Self-Care/Home Management Soft Tissue Mobilization Therapeutic Activities Therapeutic Exercises Modalities Cold Pack/Ice Massage Electric Stimulation Hot Packs Ultrasound Other Referrals/Consults Referrals/Consults Recommended Request script for AFO to limit effects of drop-foot. Next Visit Focus/Plan Next Note Type Treatment Note Next Visit Plan LE strengthening, gait training, balance training, pain control.
--- NOTE | 2018-11-06 15:14 | PT.OTN ---
Current Diagnoses Other secondary scoliosis, lumbar region (11/06/18) Spondylolisthesis, lumbar region (11/06/18) Spinal stenosis, lumbar region with neurogenic claudication (11/06/18) Physical Therapy Treatment Note PT-OP-A Visit Information Start: 10/12/18 10:42 Freq: Status: Active Protocol: Document 11/06/18 14:30 DCW (Rec: 11/06/18 15:14 DCW [id number]) Out-Patient Physical Therapy Visit Information Visit Information Visit Type Treatment Note Visit Start Time 14:30 Visit Stop Time 15:15 Total Visit Minutes 45 Visit Number 8 Number of ASPHALT ROLLER PERSON Visits 0 Evaluation Information Evaluation Date 10/13/18 PT-OP-B Current Condition Start: 10/12/18 10:42 Freq: Status: Active Protocol: Document 10/11/18 12:15 DCW (Rec: 10/12/18 12:57 DCW [id number]) Current Condition History of Current Condition Onset Date 08/23/18 Current Complaints Back pain, R leg weakness, difficulty walking s/p L2-5 TLIF History of Current Condition Pt is a 58 year old male presenting nearly 2 months s/p L2-5 TLIF, cage, and bilateral posterior instrumentation secondary to spondylolisthesis, scoliosis, and lumbar spinal stenosis /c neurogenic claudication. Pt reports that prior to surgery, he had about 25% numbness in his right foot, up his right leg, and across his posterior hips. Following surgery, however, he has 90% numbness throughout his entire right leg and over to his left posterior hip. Pt notes he was able to walk in for his surgery, but has not been able to walk much since. Pt does note that since he took a prednisone pack three weeks ago, about 50% of the numbness has changed to pain, so I guess that's good, since I'm at least feeling something again. Pt reports that his neck will also need surgery, and is causing numbness and weakness into his hands, but his surgeon decided to get my back squared away first before worrying about the neck . 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 Pt reports that Dr Gibbons told him he could begin to perform very mild flexion/rotation as tolerated, but remember baby steps. Pt reports that at home, he ascends/descends his stairs 6x/day, using his SPC in his L hand and his R hand on a rail, but he has to go down backwards. Prior Treatments and Tests 2-5 TLIF, cage, and bilateral posterior instrumentation secondary to spondylolisthesis , scoliosis, and lumbar spinal stenosis /c neurogenic claudication Future Testing and Treatments Planned Likely cervical lami/fusion in the upcoming months Treatment Goals Patient/Caregiver Goals Pt would like to decrease the numbness in his leg, improve his current strength level, and to be able to stand up fo longer than a few minutes. Prior Functional Status Baseline Function- ADL's Independent Baseline Function- Mobility Independent Current Functional Impairments (Reported) Functional Limitations- ADL's Ambulates with SPC or FWW for longer distances, unable to diamond picker anything more than a few pounds and keep his balance, unable to stand independently longer than two minutes. PT-OP-C Subjective Start: 10/12/18 10:42 Freq: Status: Active Protocol: Document 11/06/18 14:30 DCW (Rec: 11/06/18 15:14 DCW [id number]) OP-PT Subjective Patient Comments Patient Comments Pt notes his right foot has been bothering him more recently, but he has no reasons as to why. PT-OP-F Manual Assessment Start: 10/12/18 10:42 Freq: Status: Active Protocol: Document 10/11/18 12:15 DCW (Rec: 10/12/18 12:57 DCW [id number]) Manual Assessments Soft Tissue Assessment Soft Tissue Mobility Assessment Surgical incisions CDI, minimal edema in surgical area . Joint Mobility Assessment Joint Mobility Assessment Lumbar mobility significantly limited secondary to instrumentation, tone, and pain. PT-OP-G Mobility & Gait Start: 10/12/18 10:42 Freq: Status: Active Protocol: Document 10/11/18 12:15 DCW (Rec: 10/12/18 12:57 DCW [id number]) OP Gait Assessment Gait Gait Assistance Required: Standby Assistance Distance (Feet) 170 Able to Maintain Weight Bearing Status Yes During Gait Assistive Devices Assistive Device Front Wheeled Walker Orthotic/Prosthetic Devices or Brace: No Gait Deviations General Gait Pattern Antalgic Decreased Stride Length Flexed Trunk Lateral Trunk Lean Comments Gait Comments Steppage gait, trendelenberg lateral trunk flexion, R foot drop/slap. PT-OP-K Range of Motion Start: 10/12/18 10:42 Freq: Status: Active Protocol: Document 10/11/18 12:15 DCW (Rec: 10/12/18 12:57 DCW [id number]) Lumbar Spine Range of Motion Lumbar Spine Active Degrees Testing Position Sitting Flexion 12 Rotation Left 14 Rotation Right 16 ROM Limitations Soft Tissue Tightness Bony Restriction Muscle Tone Pain PT-OP-M Strength Start: 10/12/18 10:42 Freq: Status: Active Protocol: Document 10/11/18 12:15 DCW (Rec: 10/12/18 12:57 DCW [id number]) Hip Strength Hip Manual Muscle Testing Right Flexion (L2) 3 Fair Abduction 3+ Fair+ Adduction 3+ Fair+ External Rotation 3+ Fair+ Internal Rotation 3+ Fair+ Left Flexion (L2) 4+ Good+ Abduction 4+ Good+ Adduction 4 Good External Rotation 4 Good Internal Rotation 4 Good Knee Strength Knee Manual Muscle Testing Right Flexion (S2) 3+ Fair+ Extension (L3) 3 Fair Left Flexion (S2) 4 Good Extension (L3) 4+ Good+ Ankle/Foot Strength Ankle and Foot Manual Muscle Testing Right Dorsiflexion (L4) 2- Poor- Plantarflexion (S1) 3 Fair Left Dorsiflexion (L4) 4 Good Plantarflexion (S1) 4 Good PT-OP-Q Treatments Start: 10/12/18 10:42 Freq: Status: Active Protocol: Document 11/06/18 14:30 DCW (Rec: 11/06/18 15:14 DCW [id number]) Cardio Equipment Recumbent Elliptical (Biodex) Duration (Minutes) 6 Resistance 6 Seat Position 10 Gym Equipment Shuttle Recovery Unilateral Squats Resistance 62# Shuttle Recovery Platform Stable Reps/Time x20 Bilateral Squats Resistance 125# Shuttle Recovery Platform Stable Reps/Time x20 Shuttle Balance Red Details Wide MINISTERIO (EO/EC, Perturbations ), staggered stance Therapeutic Exercises Supine Exercises Hamstring Stretch Supine Exercise Name HS stretch Side bilateral Piriformis Stretch Supine Exercise Name Figure-4, Pred-mh-udusrsuh shoulder Side bilateral Other Exercises Resisted Fwd/Bkwd Ambulation Other Exercise Name Resisted Fwd/Bkwd Ambulation Resistance Green Equipment Used T-band Comments R hand on rail, L crutch Resisted Side-stepping Other Exercise Name Resisted Side-stepping Resistance Green Equipment Used T-band PT-OP-T Assessment and Plan Start: 10/12/18 10:42 Freq: Status: Active Protocol: Document 11/06/18 14:30 DCW (Rec: 11/06/18 15:14 DCW [id number]) Physical Therapy Assessment Impairments Impairments Activity Tolerance Functional Activities Functional Mobility Gait Pain ROM Strength Tone Goals Four Impairment Stairs Short Term Goal (STG) Pt to ascend/descend stairs with one railing using step- over-step gait pattern. STG Duration 11/11/18 Three Impairment R leg weakness Alf Goal (LTG) R leg MMT to 4-/5, with exception of R DF to 3/5 LTG Duration 12/11/18 Two Impairment Decreased activity tolerance Short Term Goal (STG) Pt to increased standing tolerance from two minutes to 10 minutes to improve ability to perform ADLs. STG Duration 11/11/18 Fur Scraper Goal (LTG) Pt to lift 15 pounds without losing balance or increasing pain LTG Duration 12/11/18 One Impairment Pt does not have an appropriate home exercise program Short Term Goal (STG) Pt to be independent and complaint with an appropriate HEP STG Duration 11/11/18 Assessment Summary Assessment Focused today more on stretching pt due to complaints of posterior hip tightness and leg numbness. Following treatment, pt noted improvement in pain and numbness levels. Physical Therapy Plan Frequency and Duration Frequency of Treatment 2x/Week Duration of Treatment 10 weeks Plan of Care Start Date 10/11/18 Plan of Care End Date 12/20/18 Therapeutic Interventions Therapeutic Interventions Aquatic Therapy Coordination Training Gait Training Home Exercise Program Manual Therapy Neuromuscular Re-education Patient/Caregiver Education Self-Care/Home Management Soft Tissue Mobilization Therapeutic Activities Therapeutic Exercises Modalities Cold Pack/Ice Massage Electric Stimulation Hot Packs Ultrasound Next Visit Focus/Plan Next Note Type Treatment Note Next Visit Plan LE strengthening, gait training, balance training, pain control.
--- NOTE | 2018-11-08 15:14 | PT.OTN ---
Current Diagnoses Other secondary scoliosis, lumbar region (11/08/18) Spondylolisthesis, lumbar region (11/08/18) Spinal stenosis, lumbar region with neurogenic claudication (11/08/18) Physical Therapy Treatment Note PT-OP-A Visit Information Start: 10/12/18 10:42 Freq: Status: Active Protocol: Document 11/08/18 14:30 DCW (Rec: 11/08/18 15:14 DCW [id number]) Out-Patient Physical Therapy Visit Information Visit Information Visit Type Treatment Note Visit Start Time 14:30 Visit Stop Time 15:15 Total Visit Minutes 45 Visit Number 9 Number of BEAN WEIGHER Visits 0 Evaluation Information Evaluation Date 10/13/18 PT-OP-B Current Condition Start: 10/12/18 10:42 Freq: Status: Active Protocol: Document 10/11/18 12:15 DCW (Rec: 10/12/18 12:57 DCW [id number]) Current Condition History of Current Condition Onset Date 08/23/18 Current Complaints Back pain, R leg weakness, difficulty walking s/p L2-5 TLIF History of Current Condition Pt is a 58 year old male presenting nearly 2 months s/p L2-5 TLIF, cage, and bilateral posterior instrumentation secondary to spondylolisthesis, scoliosis, and lumbar spinal stenosis /c neurogenic claudication. Pt reports that prior to surgery, he had about 25% numbness in his right foot, up his right leg, and across his posterior hips. Following surgery, however, he has 90% numbness throughout his entire right leg and over to his left posterior hip. Pt notes he was able to walk in for his surgery, but has not been able to walk much since. Pt does note that since he took a prednisone pack three weeks ago, about 50% of the numbness has changed to pain, so I guess that's good, since I'm at least feeling something again. Pt reports that his neck will also need surgery, and is causing numbness and weakness into his hands, but his surgeon decided to get my back squared away first before worrying about the neck . 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 Pt reports that Dr Gibbons told him he could begin to perform very mild flexion/rotation as tolerated, but remember baby steps. Pt reports that at home, he ascends/descends his stairs 6x/day, using his SPC in his L hand and his R hand on a rail, but he has to go down backwards. Prior Treatments and Tests 2-5 TLIF, cage, and bilateral posterior instrumentation secondary to spondylolisthesis , scoliosis, and lumbar spinal stenosis /c neurogenic claudication Future Testing and Treatments Planned Likely cervical lami/fusion in the upcoming months Treatment Goals Patient/Caregiver Goals Pt would like to decrease the numbness in his leg, improve his current strength level, and to be able to stand up fo longer than a few minutes. Prior Functional Status Baseline Function- ADL's Independent Baseline Function- Mobility Independent Current Functional Impairments (Reported) Functional Limitations- ADL's Ambulates with SPC or FWW for longer distances, unable to pickle solution maker anything more than a few pounds and keep his balance, unable to stand independently longer than two minutes. PT-OP-C Subjective Start: 10/12/18 10:42 Freq: Status: Active Protocol: Document 11/08/18 14:30 DCW (Rec: 11/08/18 15:14 DCW [id number]) OP-PT Subjective Patient Comments Patient Comments Every once and a while, my foot gets hung up on something . I still get extra numbness and tingling if I'm sitting at my desk too long. PT-OP-F Manual Assessment Start: 10/12/18 10:42 Freq: Status: Active Protocol: Document 10/11/18 12:15 DCW (Rec: 10/12/18 12:57 DCW [id number]) Manual Assessments Soft Tissue Assessment Soft Tissue Mobility Assessment Surgical incisions CDI, minimal edema in surgical area . Joint Mobility Assessment Joint Mobility Assessment Lumbar mobility significantly limited secondary to instrumentation, tone, and pain. PT-OP-G Mobility & Gait Start: 10/12/18 10:42 Freq: Status: Active Protocol: Document 10/11/18 12:15 DCW (Rec: 10/12/18 12:57 DCW [id number]) OP Gait Assessment Gait Gait Assistance Required: Standby Assistance Distance (Feet) 170 Able to Maintain Weight Bearing Status Yes During Gait Assistive Devices Assistive Device Front Wheeled Walker Orthotic/Prosthetic Devices or Brace: No Gait Deviations General Gait Pattern Antalgic Decreased Stride Length Flexed Trunk Lateral Trunk Lean Comments Gait Comments Steppage gait, trendelenberg lateral trunk flexion, R foot drop/slap. PT-OP-K Range of Motion Start: 10/12/18 10:42 Freq: Status: Active Protocol: Document 10/11/18 12:15 DCW (Rec: 10/12/18 12:57 DCW [id number]) Lumbar Spine Range of Motion Lumbar Spine Active Degrees Testing Position Sitting Flexion 12 Rotation Left 14 Rotation Right 16 ROM Limitations Soft Tissue Tightness Bony Restriction Muscle Tone Pain PT-OP-M Strength Start: 10/12/18 10:42 Freq: Status: Active Protocol: Document 10/11/18 12:15 DCW (Rec: 10/12/18 12:57 DCW [id number]) Hip Strength Hip Manual Muscle Testing Right Flexion (L2) 3 Fair Abduction 3+ Fair+ Adduction 3+ Fair+ External Rotation 3+ Fair+ Internal Rotation 3+ Fair+ Left Flexion (L2) 4+ Good+ Abduction 4+ Good+ Adduction 4 Good External Rotation 4 Good Internal Rotation 4 Good Knee Strength Knee Manual Muscle Testing Right Flexion (S2) 3+ Fair+ Extension (L3) 3 Fair Left Flexion (S2) 4 Good Extension (L3) 4+ Good+ Ankle/Foot Strength Ankle and Foot Manual Muscle Testing Right Dorsiflexion (L4) 2- Poor- Plantarflexion (S1) 3 Fair Left Dorsiflexion (L4) 4 Good Plantarflexion (S1) 4 Good PT-OP-Q Treatments Start: 10/12/18 10:42 Freq: Status: Active Protocol: Document 11/08/18 14:30 DCW (Rec: 11/08/18 15:14 DCW [id number]) Cardio Equipment Recumbent Elliptical (Biodex) Duration (Minutes) 6 Resistance 6 Seat Position 10 Gym Equipment Shuttle Recovery Unilateral Squats Resistance 62# Shuttle Recovery Platform Stable Reps/Time x20 Bilateral Squats Resistance 125# Shuttle Recovery Platform Stable Reps/Time x22 Shuttle Balance Red Details Wide MINISTERIO (EO/EC, Perturbations ), staggered stance Therapeutic Ball Bridging Exercise Details Bridging /c feet on T-ball Ball Size/Color Red - 55 cm Body Position Supine Trunk Rotations Exercise Details Minimal Trunk Rotations /c feet on ball Ball Size/Color Red - 55 cm Body Position Hooklying Therapeutic Exercises Supine Exercises Hamstring Stretch Supine Exercise Name HS stretch Side bilateral Piriformis Stretch Supine Exercise Name Figure-4, Lcbq-dy-gdlenxyi shoulder Side bilateral Other Exercises Resisted Fwd/Bkwd Ambulation Other Exercise Name Resisted Fwd/Bkwd Ambulation Resistance Green Equipment Used T-band Comments R hand on rail, L crutch Resisted Side-stepping Other Exercise Name Resisted Side-stepping Resistance Green Equipment Used T-band PT-OP-T Assessment and Plan Start: 10/12/18 10:42 Freq: Status: Active Protocol: Document 11/08/18 14:30 DCW (Rec: 11/08/18 15:14 DCW [id number]) Physical Therapy Assessment Impairments Impairments Activity Tolerance Functional Activities Functional Mobility Gait Pain ROM Strength Tone Goals Four Impairment Stairs Short Term Goal (STG) Pt to ascend/descend stairs with one railing using step- over-step gait pattern. STG Duration 11/11/18 Three Impairment R leg weakness General Road Supervisor Goal (LTG) R leg MMT to 4-/5, with exception of R DF to 3/5 LTG Duration 12/11/18 Two Impairment Decreased activity tolerance Short Term Goal (STG) Pt to increased standing tolerance from two minutes to 10 minutes to improve ability to perform ADLs. STG Duration 11/11/[address] Supervisor Goal (LTG) Pt to lift 15 pounds without losing balance or increasing pain LTG Duration 12/11/18 One Impairment Pt does not have an appropriate home exercise program Short Term Goal (STG) Pt to be independent and complaint with an appropriate HEP STG Duration 11/11/18 Assessment Summary Assessment Pt tolerated exercise better today with fewer complaints of pain and stiffness. Physical Therapy Plan Frequency and Duration Frequency of Treatment 2x/Week Duration of Treatment 10 weeks Plan of Care Start Date 10/11/18 Plan of Care End Date 12/20/18 Therapeutic Interventions Therapeutic Interventions Aquatic Therapy Coordination Training Gait Training Home Exercise Program Manual Therapy Neuromuscular Re-education Patient/Caregiver Education Self-Care/Home Management Soft Tissue Mobilization Therapeutic Activities Therapeutic Exercises Modalities Cold Pack/Ice Massage Electric Stimulation Hot Packs Ultrasound Next Visit Focus/Plan Next Note Type Treatment Note Next Visit Plan LE strengthening, gait training, balance training, pain control.
--- NOTE | 2018-11-12 16:55 | PT.OTN ---
Current Diagnoses Other secondary scoliosis, lumbar region (11/12/18) Spondylolisthesis, lumbar region (11/12/18) Spinal stenosis, lumbar region with neurogenic claudication (11/12/18) Physical Therapy Treatment Note PT-OP-A Visit Information Start: 10/12/18 10:42 Freq: Status: Active Protocol: Document 11/12/18 14:30 DCW (Rec: 11/12/18 16:55 DCW [id number]) Out-Patient Physical Therapy Visit Information Visit Information Visit Type Treatment Note Visit Start Time 14:30 Visit Stop Time 15:15 Total Visit Minutes 45 Visit Number 10 Number of CUSTOMER EXPERIENCE RETAIL CLERK Visits 0 Evaluation Information Evaluation Date 10/13/18 PT-OP-B Current Condition Start: 10/12/18 10:42 Freq: Status: Active Protocol: Document 10/11/18 12:15 DCW (Rec: 10/12/18 12:57 DCW [id number]) Current Condition History of Current Condition Onset Date 08/23/18 Current Complaints Back pain, R leg weakness, difficulty walking s/p L2-5 TLIF History of Current Condition Pt is a 58 year old male presenting nearly 2 months s/p L2-5 TLIF, cage, and bilateral posterior instrumentation secondary to spondylolisthesis, scoliosis, and lumbar spinal stenosis /c neurogenic claudication. Pt reports that prior to surgery, he had about 25% numbness in his right foot, up his right leg, and across his posterior hips. Following surgery, however, he has 90% numbness throughout his entire right leg and over to his left posterior hip. Pt notes he was able to walk in for his surgery, but has not been able to walk much since. Pt does note that since he took a prednisone pack three weeks ago, about 50% of the numbness has changed to pain, so I guess that's good, since I'm at least feeling something again. Pt reports that his neck will also need surgery, and is causing numbness and weakness into his hands, but his surgeon decided to get my back squared away first before worrying about the neck . 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 Pt reports that Dr Gibbons told him he could begin to perform very mild flexion/rotation as tolerated, but remember baby steps. Pt reports that at home, he ascends/descends his stairs 6x/day, using his SPC in his L hand and his R hand on a rail, but he has to go down backwards. Prior Treatments and Tests 2-5 TLIF, cage, and bilateral posterior instrumentation secondary to spondylolisthesis , scoliosis, and lumbar spinal stenosis /c neurogenic claudication Future Testing and Treatments Planned Likely cervical lami/fusion in the upcoming months Treatment Goals Patient/Caregiver Goals Pt would like to decrease the numbness in his leg, improve his current strength level, and to be able to stand up fo longer than a few minutes. Prior Functional Status Baseline Function- ADL's Independent Baseline Function- Mobility Independent Current Functional Impairments (Reported) Functional Limitations- ADL's Ambulates with SPC or FWW for longer distances, unable to clam picker anything more than a few pounds and keep his balance, unable to stand independently longer than two minutes. PT-OP-C Subjective Start: 10/12/18 10:42 Freq: Status: Active Protocol: Document 11/12/18 14:30 DCW (Rec: 11/12/18 16:55 DCW [id number]) OP-PT Subjective Patient Comments Patient Comments Pt reports that he started a new exercise routine this week , including leg strengthening and working on an elliptical, but afterward he noticed increased UE tingling which inturrupted his sleep PT-OP-F Manual Assessment Start: 10/12/18 10:42 Freq: Status: Active Protocol: Document 10/11/18 12:15 DCW (Rec: 10/12/18 12:57 DCW [id number]) Manual Assessments Soft Tissue Assessment Soft Tissue Mobility Assessment Surgical incisions CDI, minimal edema in surgical area . Joint Mobility Assessment Joint Mobility Assessment Lumbar mobility significantly limited secondary to instrumentation, tone, and pain. PT-OP-G Mobility & Gait Start: 10/12/18 10:42 Freq: Status: Active Protocol: Document 10/11/18 12:15 DCW (Rec: 10/12/18 12:57 DCW [id number]) OP Gait Assessment Gait Gait Assistance Required: Standby Assistance Distance (Feet) 170 Able to Maintain Weight Bearing Status Yes During Gait Assistive Devices Assistive Device Front Wheeled Walker Orthotic/Prosthetic Devices or Brace: No Gait Deviations General Gait Pattern Antalgic Decreased Stride Length Flexed Trunk Lateral Trunk Lean Comments Gait Comments Steppage gait, trendelenberg lateral trunk flexion, R foot drop/slap. PT-OP-K Range of Motion Start: 10/12/18 10:42 Freq: Status: Active Protocol: Document 10/11/18 12:15 DCW (Rec: 10/12/18 12:57 DCW [id number]) Lumbar Spine Range of Motion Lumbar Spine Active Degrees Testing Position Sitting Flexion 12 Rotation Left 14 Rotation Right 16 ROM Limitations Soft Tissue Tightness Bony Restriction Muscle Tone Pain PT-OP-M Strength Start: 10/12/18 10:42 Freq: Status: Active Protocol: Document 10/11/18 12:15 DCW (Rec: 10/12/18 12:57 DCW [id number]) Hip Strength Hip Manual Muscle Testing Right Flexion (L2) 3 Fair Abduction 3+ Fair+ Adduction 3+ Fair+ External Rotation 3+ Fair+ Internal Rotation 3+ Fair+ Left Flexion (L2) 4+ Good+ Abduction 4+ Good+ Adduction 4 Good External Rotation 4 Good Internal Rotation 4 Good Knee Strength Knee Manual Muscle Testing Right Flexion (S2) 3+ Fair+ Extension (L3) 3 Fair Left Flexion (S2) 4 Good Extension (L3) 4+ Good+ Ankle/Foot Strength Ankle and Foot Manual Muscle Testing Right Dorsiflexion (L4) 2- Poor- Plantarflexion (S1) 3 Fair Left Dorsiflexion (L4) 4 Good Plantarflexion (S1) 4 Good PT-OP-Q Treatments Start: 10/12/18 10:42 Freq: Status: Active Protocol: Document 11/12/18 14:30 DCW (Rec: 11/12/18 16:55 DCW [id number]) Cardio Equipment Recumbent Elliptical (Biodex) Duration (Minutes) 6 Resistance 6 Seat Position 10 Gym Equipment Shuttle Recovery Unilateral Squats Resistance 62# Shuttle Recovery Platform Stable Reps/Time x20 Bilateral Squats Resistance 125# Shuttle Recovery Platform Stable Reps/Time x30 Shuttle Balance Red Details Wide MINISTERIO (EO/EC, Perturbations ), staggered stance Therapeutic Exercises Supine Exercises Hamstring Stretch Supine Exercise Name HS stretch Side bilateral Piriformis Stretch Supine Exercise Name Figure-4, Kodv-zw-gttvwrys shoulder Side bilateral Other Exercises Resisted Fwd/Bkwd Ambulation Other Exercise Name Resisted Fwd/Bkwd Ambulation Resistance Green Equipment Used T-band Comments R hand on rail, L crutch Resisted Side-stepping Other Exercise Name Resisted Side-stepping Resistance Green Equipment Used T-band Manual Therapy Treatment Soft Tissue Mobilization Paraspinals Body Location R paraspinals and QL Mobilization Type Strumming Sustained Pressure Intensity/Depth Moderate Body Position Sidelying PT-OP-T Assessment and Plan Start: 10/12/18 10:42 Freq: Status: Active Protocol: Document 11/12/18 14:30 DCW (Rec: 11/12/18 16:55 DCW [id number]) Physical Therapy Assessment Impairments Impairments Activity Tolerance Functional Activities Functional Mobility Gait Pain ROM Strength Tone Goals Four Impairment Stairs Short Term Goal (STG) Pt to ascend/descend stairs with one railing using step- over-step gait pattern. STG Duration 11/11/18 Three Impairment R leg weakness Long-Term Goal (LTG) R leg MMT to 4-/5, with exception of R DF to 3/5 LTG Duration 12/11/18 Two Impairment Decreased activity tolerance Short Term Goal (STG) Pt to increased standing tolerance from two minutes to 10 minutes to improve ability to perform ADLs. STG Duration 11/11/18 Lamp Tester And Inspector Goal (LTG) Pt to lift 15 pounds without losing balance or increasing pain LTG Duration 12/11/18 One Impairment Pt does not have an appropriate home exercise program Short Term Goal (STG) Pt to be independent and complaint with an appropriate HEP STG Duration 11/11/18 Assessment Summary Assessment Pt had increased tone throughout right QL and paraspinals, however responded well to manual therapy. Physical Therapy Plan Frequency and Duration Frequency of Treatment 2x/Week Duration of Treatment 10 weeks Plan of Care Start Date 10/11/18 Plan of Care End Date 12/20/18 Therapeutic Interventions Therapeutic Interventions Aquatic Therapy Coordination Training Gait Training Home Exercise Program Manual Therapy Neuromuscular Re-education Patient/Caregiver Education Self-Care/Home Management Soft Tissue Mobilization Therapeutic Activities Therapeutic Exercises Modalities Cold Pack/Ice Massage Electric Stimulation Hot Packs Ultrasound Next Visit Focus/Plan Next Note Type Treatment Note Next Visit Plan LE strengthening, gait training, balance training, pain control.
--- NOTE | 2018-11-19 10:40 | PT.OPDS ---
Current Diagnoses Other secondary scoliosis, lumbar region (11/12/18) Spondylolisthesis, lumbar region (11/12/18) Spinal stenosis, lumbar region with neurogenic claudication (11/12/18) Provider Visit Care Team Role Provider Type Giacomo Pollard MD Family Provider Physician Primary Care Provider Specialty: Internal Medicine Address: [address] [place] [address], [id number] Email: Ayse Gibbons MD Attending Provider Physician Specialty: Orthopedic Surgery Address: [address] [place] [address], [id number] Email: [email or web address] Visit Number Visit Number 10 Discharge Summary PT-OP-B Current Condition Start: 10/12/18 10:42 Freq: Status: Active Protocol: Document 10/11/18 12:15 DCW (Rec: 10/12/18 12:57 DCW [id number]) Current Condition History of Current Condition Onset Date 08/23/18 Current Complaints Back pain, R leg weakness, difficulty walking s/p L2-5 TLIF History of Current Condition Pt is a 58 year old male presenting nearly 2 months s/p L2-5 TLIF, cage, and bilateral posterior instrumentation secondary to spondylolisthesis, scoliosis, and lumbar spinal stenosis /c neurogenic claudication. Pt reports that prior to surgery, he had about 25% numbness in his right foot, up his right leg, and across his posterior hips. Following surgery, however, he has 90% numbness throughout his entire right leg and over to his left posterior hip. Pt notes he was able to walk in for his surgery, but has not been able to walk much since. Pt does note that since he took a prednisone pack three weeks ago, about 50% of the numbness has changed to pain, so I guess that's good, since I'm at least feeling something again. Pt reports that his neck will also need surgery, and is causing numbness and weakness into his hands, but his surgeon decided to get my back squared away first before worrying about the neck . 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 Pt reports that Dr Gibbons told him he could begin to perform very mild flexion/rotation as tolerated, but remember baby steps. Pt reports that at home, he ascends/descends his stairs 6x/day, using his SPC in his L hand and his R hand on a rail, but he has to go down backwards. Prior Treatments and Tests 2-5 TLIF, cage, and bilateral posterior instrumentation secondary to spondylolisthesis , scoliosis, and lumbar spinal stenosis /c neurogenic claudication Future Testing and Treatments Planned Likely cervical lami/fusion in the upcoming months Treatment Goals Patient/Caregiver Goals Pt would like to decrease the numbness in his leg, improve his current strength level, and to be able to stand up fo longer than a few minutes. 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 PT-OP-C Subjective Start: 10/12/18 10:42 Freq: Status: Active Protocol: Document 11/12/18 14:30 DCW (Rec: 11/12/18 16:55 DCW [id number]) OP-PT Subjective Patient Comments Patient Comments Pt reports that he started a new exercise routine this week , including leg strengthening and working on an elliptical, but afterward he noticed increased UE tingling which inturrupted his sleep PT-OP-F Manual Assessment Start: 10/12/18 10:42 Freq: Status: Active Protocol: Document 10/11/18 12:15 DCW (Rec: 10/12/18 12:57 DCW [id number]) Manual Assessments Soft Tissue Assessment Soft Tissue Mobility Assessment Surgical incisions CDI, minimal edema in surgical area . Joint Mobility Assessment Joint Mobility Assessment Lumbar mobility significantly limited secondary to instrumentation, tone, and pain. PT-OP-G Mobility & Gait Start: 10/12/18 10:42 Freq: Status: Active Protocol: Document 10/11/18 12:15 DCW (Rec: 10/12/18 12:57 DCW [id number]) OP Gait Assessment Gait Gait Assistance Required: Standby Assistance Distance (Feet) 170 Able to Maintain Weight Bearing Status Yes During Gait Assistive Devices Assistive Device Front Wheeled Walker Orthotic/Prosthetic Devices or Brace: No Gait Deviations General Gait Pattern Antalgic Decreased Stride Length Flexed Trunk Lateral Trunk Lean Comments Gait Comments Steppage gait, trendelenberg lateral trunk flexion, R foot drop/slap. PT-OP-K Range of Motion Start: 10/12/18 10:42 Freq: Status: Active Protocol: Document 10/11/18 12:15 DCW (Rec: 10/12/18 12:57 DCW [id number]) Lumbar Spine Range of Motion Lumbar Spine Active Degrees Testing Position Sitting Flexion 12 Rotation Left 14 Rotation Right 16 ROM Limitations Soft Tissue Tightness Bony Restriction Muscle Tone Pain PT-OP-M Strength Start: 10/12/18 10:42 Freq: Status: Active Protocol: Document 10/11/18 12:15 DCW (Rec: 10/12/18 12:57 DCW [id number]) Hip Strength Hip Manual Muscle Testing Right Flexion (L2) 3 Fair Abduction 3+ Fair+ Adduction 3+ Fair+ External Rotation 3+ Fair+ Internal Rotation 3+ Fair+ Left Flexion (L2) 4+ Good+ Abduction 4+ Good+ Adduction 4 Good External Rotation 4 Good Internal Rotation 4 Good Knee Strength Knee Manual Muscle Testing Right Flexion (S2) 3+ Fair+ Extension (L3) 3 Fair Left Flexion (S2) 4 Good Extension (L3) 4+ Good+ Ankle/Foot Strength Ankle and Foot Manual Muscle Testing Right Dorsiflexion (L4) 2- Poor- Plantarflexion (S1) 3 Fair Left Dorsiflexion (L4) 4 Good Plantarflexion (S1) 4 Good PT-OP-T Assessment and Plan Start: 10/12/18 10:42 Freq: Status: Active Protocol: Document 11/19/18 10:38 DCW (Rec: 11/19/18 10:40 DCW [id number]) Physical Therapy Assessment Goals Four Impairment Stairs Short Term Goal (STG) Pt to ascend/descend stairs with one railing using step- over-step gait pattern. STG Duration 11/11/18 Three Impairment R leg weakness Supply Chain Intern Goal (LTG) R leg MMT to 4-/5, with exception of R DF to 3/5 LTG Duration 12/11/18 Two Impairment Decreased activity tolerance Short Term Goal (STG) Pt to increased standing tolerance from two minutes to 10 minutes to improve ability to perform ADLs. STG Duration 11/11/18 Supply Chain Intern Goal (LTG) Pt to lift 15 pounds without losing balance or increasing pain LTG Duration 12/11/18 One Impairment Pt does not have an appropriate home exercise program Short Term Goal (STG) Pt to be independent and complaint with an appropriate HEP STG Duration 11/11/18 Assessment Summary Assessment Pt phoned the clinic over the weekend, and left a message stating he was unable to afford coming back to PT, and to please cancel all remaining appointments. Pt will be discharged at this time. Physical Therapy Plan Discharge Physical Therapy Discharge Reasons Patient Request Next Visit Focus/Plan Next Note Type Discharge Summary
== END 2018-11-26 08:37 | disposition home or self-care (01) ==
LOC: PHYS 14:30
PROVIDERS: Family Provider Student in an Organized Health Care Education/Training Program; PCP Student in an Organized Health Care Education/Training Program; Visit Provider Orthopaedic Surgery Orthopaedic Surgery of the Spine
DX: M43.16 Spondylolisthesis, lumbar region (principal); M41.56 Other secondary scoliosis, lumbar region; M48.062 Spinal stenosis, lumbar region with neurogenic claudication
CPT/HCPCS: 97110; 97112; 97116; 97163

== ENCOUNTER → 2018-11-30 09:31 | Outpatient (CLI) | payer OTHER, SELFPAY ==
[2018-08-23 07:47] VITALS: BMI 30.2
--- NOTE | 2018-11-30 | DI.CT.S_ITS ---
PROCEDURE: CT LUMBAR SPINE WO CON INDICATIONS: SPINAL STENOSIS LUMBAR REGION TECHNIQUE: Noncontrast 3 mm thick sections acquired from the T12 level to the sacrum. Sagittal and coronal reformats were constructed. For radiation dose reduction, the following was used: automated exposure control. COMPARISON: [facility], CR, XR LUMBAR SPINE 2-3V, 08/23/2018, 8:25. [facility], CR, XR LUMBAR SPINE 2-3V, 06/13/2018, 11:47. [facility], MR, MR LUMBAR SPINE WO CON, 07/20/2018, 16:13. FINDINGS: Image quality: Excellent. Bones: No retrolisthesis is seen at L1-L2, L2-L3, and L3-L4. Mild levoconvex scoliotic curvature is noted. No acute vertebral body compression fractures. No suspicious lytic or blastic bony lesions. There is a left pars defect seen at the L2-L3 level. Postoperative changes are seen, with bilateral pedicle screws at L2, L3, L4, and L5. Vertical fixation rods are seen. The screws appear well placed. There is lucency seen adjacent to the right L5 screw. No findings of hardware failure or hardware loosening are seen. Disc spacers are seen at L2-L3, L4, and L4-L5. There is streak artifact associated with the metallic hardware. There has been removal of portions of the posterior elements. T12-L1: Mild loss of disc height is seen. Vacuum disc phenomenon is seen at this level. Endplate irregularity and sclerosis can be seen. Mild to moderate disc bulge is seen. There is mild left-sided and no significant right-sided neural foraminal narrowing seen. Mild central canal narrowing is seen. L1-L2: Mild loss of disc height is seen at this level. Moderate generalized disc bulge is seen. Mild bilateral neural foraminal narrowing is seen. Mild central canal narrowing is seen. L2-L3: Moderate disc bulge is seen. Moderate bilateral neural foraminal narrowing is seen, left worse than right. Likely moderate central canal narrowing is seen. L3-L4: Moderate generalized disc bulge is seen. Moderate bilateral neural foraminal narrowing is seen. Moderate central canal narrowing is seen. L4-L5: Moderate generalized disc bulge is seen. There is moderate left-sided and mild right-sided neural foraminal narrowing seen. Mild central canal narrowing is seen. The disc height is well-preserved. L5-S1: Moderate loss of disc height is seen on the right side. Mild to moderate disc bulge is seen. Moderate facet joint hypertrophy is seen. No significant central canal narrowing is seen. Soft tissues: No retroperitoneal masses or hematomas. Visualized aorta is normal in caliber. IMPRESSION: Postoperative changes, without pedicle screws L2-L5. There is lucency seen adjacent to the right L5 screw, which is consistent with loosening. Improvement of degenerative change at the L4-L5 level compared to the prior MRI. Dictated by: Sid Magana M.D. on 11/30/2018 at 11:59 Approved by: Sid Magana M.D. on 11/30/2018 at 12:05
== END ==
PROVIDERS: Family Provider Student in an Organized Health Care Education/Training Program; PCP Student in an Organized Health Care Education/Training Program; Visit Provider Orthopaedic Surgery Orthopaedic Surgery of the Spine
DX: M48.061 Spinal stenosis, lumbar region without neurogenic claudication (principal); M47.816 Spondylosis without myelopathy or radiculopathy, lumbar region
CPT/HCPCS: 72131

== ENCOUNTER → 2019-03-29 07:06 | Outpatient (CLI) | payer OTHER, SELFPAY ==
[2018-08-23 07:47] VITALS: BMI 30.2
[2019-03-29 08:42] LABS: Hemoglobin A1C% w Est Avg Glu 5.6 % (4.0-6.0)
[2019-03-29 09:03] LABS: Vitamin D 25 Hydroxy (D3) 49.3 ng/mL (30.0-100.0)
[2019-03-29 09:15] LABS: Prostate Specific Antigen Scrn 0.382 ng/mL (0.1-4.0)
[2019-04-02 21:35] LABS: Fecal Immunochemical Test NOT DETECTED (NOT DETECTED)
== END ==
PROVIDERS: PCP Student in an Organized Health Care Education/Training Program; Visit Provider Student in an Organized Health Care Education/Training Program
DX: E55.9 Vitamin D deficiency, unspecified (principal); R73.03 Prediabetes; Z12.5 Encounter for screening for malignant neoplasm of prostate; Z12.11 Encounter for screening for malignant neoplasm of colon
CPT/HCPCS: 36415; 82274; 82306; 83036; G0103

== ENCOUNTER 2019-09-12 10:01 | Emergency (ER) | payer OTHER, SELFPAY ==
[2018-08-23 07:47] VITALS: BMI 30.2
[2019-09-12 10:13] VITALS: BP 142/90; PULSE 79; RESP 15; TEMP 36.8; O2SAT 96; BMI 28.7
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
[2019-09-12 13:26] VITALS: BP 135/81; PULSE 76; RESP 18; O2SAT 98
== END 2019-09-12 14:15 | disposition home or self-care (01) ==
PROVIDERS: Emergency Provider Nurse Practitioner; PCP Student in an Organized Health Care Education/Training Program
DX: S39.012A Strain of muscle, fascia and tendon of lower back, initial encounter (principal); V43.54XA Car driver injured in collision with van in traffic accident, initial encounter
CPT/HCPCS: 72100; 99283

== ENCOUNTER → 2020-01-21 08:17 | Outpatient (CLI) | payer OTHER, MEDICAID, SELFPAY ==
[2018-08-23 07:47] VITALS: BMI 30.2
--- NOTE | 2020-01-21 08:19 | DI.MRI.S_ITS ---
PROCEDURE: MR HUMERUS LT WO CON INDICATIONS: Eval soft tissue mass of left upper arm TECHNIQUE: Noncontrast coronal and sagittal T1 spin echo and STIR; axial T1 spin echo and T2 fast spin echo with fat saturation through the left humerus. COMPARISON: None. FINDINGS: Image quality: Excellent. Bones: There is no marrow edema. The osteoarthritic changes are noted in the acromioclavicular joint and glenohumeral joint. The overlying cortex appears intact. No fractures lines or intra-osseous lesions. Soft tissues: There is a large lobulated T1 and T2 hyperintense lesion in the anterolateral aspect of mid to distal upper arm with internal thin septations. There is near complete suppression of the signal within this mass on fat suppressed sequences. This lesion measures up to 6.8 x 9.6 x 10.9 cm in largest transverse, AP and craniocaudal dimensions. This mass is seen situated between tried sats muscle and the brachialis muscle. No definite muscle involvement is seen. No significant surrounding soft tissue or muscle edema. IMPRESSION: 1. Lobulated fat signal intensity lesion in anterolateral aspect of mid to distal upper arm between the triceps muscle and brachialis muscle and measures 6.8 x 9.6 x 10.9 cm in size. Internal thin septations are seen. Finding may represent a large lipoma in this area. Liposarcoma cannot be excluded. 2. No definite adjacent muscle involvement. 3. No marrow signal abnormality. No cortical erosion or destruction. Osteoarthritic changes in acromioclavicular joint and glenohumeral joint with small to moderate amount of joint effusion. Dictated by: Nahid Arroyo M.D. on 01/21/2020 at 9:26 Approved by: Nahid Arroyo M.D. on 01/21/2020 at 10:03
== END ==
PROVIDERS: PCP Student in an Organized Health Care Education/Training Program; Referring Provider Student in an Organized Health Care Education/Training Program; Visit Provider Student in an Organized Health Care Education/Training Program
DX: R22.32 Localized swelling, mass and lump, left upper limb (principal)
CPT/HCPCS: 73218